=== PATIENT | female | born 1950 | race Two or more races ===

== ENCOUNTER → 2023-04-05 10:39 | Outpatient (REF) | payer OTHER, SELFPAY | LOC: HWWDC 10:39 | PROVIDERS: ATTENDING PHYSICIAN Family Medicine | DX: Z12.31 Encounter for screening mammogram for malignant neoplasm of breast (principal) | CPT/HCPCS: 77063; 77067 ==

== ENCOUNTER 2023-08-09 20:29 | Inpatient (IN) | payer OTHER, SELFPAY ==
[2023-08-09] VITALS (35 sets, daily range): BP systolic 72–157; BP diastolic 34–115; BMI 35.0; BMI 34.9
[2023-08-09 16:45] LABS: % Basophils 0.5 % (0-2); % Eosinophils 1.8 % (0-6); % Immature Granulocytes 0.2 % (0-0.5); % Lymphocytes 40.4 % (20.5-51.1); % Monocytes 8.6 % (1.7-9.3); % Neutrophils 48.5 % (42.2-75.2); Absolute Eosinophils 0.1 10^3/uL (0-0.7); Absolute Lymphocytes 2.5 10^3/uL (1.2-3.4); Absolute Monocytes 0.5 10^3/uL (0.1-0.6); Hematocrit 31.2 % (37.0-47.0); Hemoglobin 10.1 g/dL (12.0-16.0); Mean Corp Hgb Conc. 32.4 g/dL (33.0-37.0); Mean Corpuscular Hgb 28.9 pg (27.0-31.0); Mean Corpuscular Volume 89.4 fL (81.0-99.0); Mean Platelet Volume 11.2 fL (7.4-10.4); Nucleated Red Blood Cells % 0 %; Platelet Count 290 10^3/uL (130-400); Red Blood Cell Count 3.49 10^6/uL (4.20-5.40); Red Cell Dist. Width 14.7 % (11.5-14.5); White Blood Cell Count 6.1 10^3/uL (4.8-10.8)
--- NOTE | 2023-08-09 16:45 | ED.GENMED ---
History of Present Illness
General
Chief Complaint: Rectal Bleeding
Time Seen by Provider: 08/09/23 16:35
History of Present Illness
History of Present Illness:
Patient presents to the emergency department with bright red blood per rectum starting this morning. Notes that she had a little bit of stomach discomfort yesterday. Today pain is localized to the left lower quadrant. Patient notes anorexia.
Denies fevers or chills. Denies nausea or vomiting.
Past History
Past History
ED Past Medical History: GERD
ED Past Surgical History: None
Phy Exam
Physical Exam
Physical Exam:
GENERAL APPEARANCE: uncomfortable appearing holding abdomen
EYES lids/conjunctiva normal
EARS/NOSE/THROAT Mucous membranes moist, uvula midline without oral pharyngeal erythema, exudate or swelling
HEAD/NECK normocephalic atraumatic, neck is supple.
RESPIRATORY respiratory effort normal, speaks in full sentences, no accessory muscle use. Lungs clear to auscultation without rhonchi, wheezes, rales
CARDIAC Regular rate and rhythm, no edema.
ABDOMINAL soft, tender in the left lower quadrant, no peritoneal signs. Rectal exam with active bright red blood
MUSCLES/EXTREMITIES No abnormal range of motion, no swelling.
SKIN Warm, pink and dry. No rashes
NEUROLOGICAL Speech is clear and appropriate. Normal level of consciousness. 5/5 strength in all extremities.
PSYCH Normal mood and affect. Judgement/competence is appropriate
Course
Orders/Labs/Results
Orders:
Orders
08/09/23 Dinner
Clear Liquid
08/09/23 16:37
Type+Screen Urgent
Basic Metabolic Panel Urgent
Complete Blood Count/With Diff Urgent
08/09/23 16:46
CT Abd/pelvis Angio W/wo Iv Urgent
Comment:
Reason For Exam: lower GI bleed
08/09/23 16:48
0.9% Sodium Chloride 500 ml [Nss] 500 ml IV BOLUS
Morphine Sulfate 4 mg IV NOW STA
08/09/23 16:49
Ondansetron Injectable [Zofran] 4 mg IV NOW STA
08/09/23 17:07
PTT Urgent
Prothrombin Time Urgent
08/09/23 18:10
CefTRIAXone [Rocephin] 1,000 mg IV NOW STA
MetroNIDAZOLE 500 MG/100 ML [Flagyl 500 mg] 100 ml IV NOW
08/09/23 18:58
Morphine Sulfate 4 mg .ROUTE .STK-MED ONE
08/09/23 19:06
Emergent Blood Release Urgent
Blood Bank Products: *Packed RBC Leuko(PRBC's)
Quantity: 2
Reason: Bleeding
A Blood Permit is Required for all Blood.
FOR LAB PICKUP:
Take order sheet to Blood Bank to cuprous chloride helper blood products in validated cooler
Immediately return to patient care area.
Blood products released by
Blood Products picked up by
Sent to
Date and Time
Pt has had a significant HIV exposure? Routine
HIV Exposure is significant?: No
HIV Combo Urgent
Hepatitis B Surface Antibody Urgent
Hepatitis B Surface Antigen Urgent
Hepatitis C Antibody Urgent
08/09/23 19:22
CBC/No Diff [Complete Blood Count/No Diff] Q8H
08/09/23 19:30
Naloxone [Narcan] 0.4 mg IV NOW STA
08/09/23 19:31
Naloxone [Narcan] 0.4 mg .ROUTE .STK-MED ONE
08/09/23 19:40
Heparin 1000 Units/500 ml [Heparin] 3,000 units in 1,500 ml .ROUTE .STK-MED
Lidocaine 2% [Xylocaine 2% Mdv] 20 ml .ROUTE .STK-MED ONE
08/09/23 19:47
[facility] CONSULT Stat
Consulting Provider: Thomas Tejeda
Was physician already notified: Yes
Reason for Consult/Procedure: GI bleed
Acknowledgement that appropriate orders are entered: Yes
08/09/23 20:08
Admit/Transfer Patient As Directed
Co-Sign Provider:
Level of Care: Inpatient admission
Assign to:: ICU
Physician / Group: Kalpesh
Diagnosis: GI Bleed
Reason for Hospitalization: GI Bleed
Expected length of stay greater than two midnights?: Yes
ELOS- Estimated Length of Stay in days: 4
I certify the patient meets the requirements for IP care: Yes
08/09/23 20:10
Code Status As Directed
Resuscitation Status: Full Code
Abnormal Lab Results
08/09/23 08/09/23
16:37 19:22
WBC 12.2 H 10^3/uL
(4.8-10.8)
RBC 3.49 L 10^6/uL 2.40 L 10^6/uL
(4.20-5.40) (4.20-5.40)
Hgb 10.1 L g/dL 7.1 L D g/dL
(12.0-16.0) (12.0-16.0)
Hct 31.2 L % 21.8 L %
(37.0-47.0) (37.0-47.0)
MCHC 32.4 L g/dL 32.6 L g/dL
(33.0-37.0) (33.0-37.0)
RDW 14.7 H % 14.6 H %
(11.5-14.5) (11.5-14.5)
MPV 11.2 H fL 11.2 H fL
(7.4-10.4) (7.4-10.4)
Glucose 258 H mg/dl
(70-99)
Crossmatch IS Only See Detail
08/09/23 19:22
08/09/23 16:37
Vital Signs
Initial and Last Documented VS:
Initial Vital Signs
Temp Resp
98.7 F 20
08/09/23 16:30 08/09/23 16:30
Last Documented Vital Signs
Temp Pulse Resp BP Pulse Ox
97.8 F 74 12 111/75 100
08/09/23 19:45 08/09/23 19:45 08/09/23 19:45 08/09/23 19:45 08/09/23 19:35
*Critical Care Note
Total Time (30-74mins, 75-104mins- exclusive of procedures): 35
comment:
updating family, at bedside providing direct critical care
ED Attending Note
ED Attending Note
ED Attending Note:
Patient with acute active diverticular bleed. Hemodynamically stable. Having ongoing bleeding episodes in the emergency department. Hemoglobin is 10 from baseline of around 11. Consulted both GI on-call Dr. Lozano as well as IR on-call .
Ileana.
Given clinical stability at this time, plan is to manage conservatively with IR to intervene with any clinical changes
Shortly after admission order placed, patient began to decompensate with worsening in her mental status. Repeat hemoglobin dropped to 7.1. Patient hypotensive 70s/30s. Given 20mcg push dose epi, emergent blood ordered and bolused. BP improving.
Given dose of narcan for worsening mental status -- multifactorial in the setting of hemorrhagic shock and opioid. Reconsulted interventional radiology who is coming to the hospital to intervene. Patient tired but easily arousable, answering
questions, at time of leaving ER to go to IR. Considered intubation for definitive airway, however risk of circulatory arrest felt to outweigh benefit given she is protecting airway at this time.
-
Portions of this chart may have been created with voice recognition software.� Occasional wrong word or��sound alike� substitutions may have occurred due to the inherent limitations of voice recognition software.
Discharge Plan
Departure
Patient Disposition: Admit
Date of Disposition: 08/09/23
Time of Disposition: 19:02
Admit to: ICU
Admit to doctor: ICU
Presentation/result/management discussed w/ accepting MD/DO: Hospitalist
Discharge Problem:
Diverticular hemorrhage, Colitis
Prescriptions:
No Action
metformin 500 mg Tablet
500 mg PO BIDWMEAL
atorvastatin 20 mg Tablet
20 mg PO DAILY
atenolol 100 mg Tablet
100 mg PO DAILY
Theragen Tablet
1 tab PO DAILY
aspirin 81 mg Tablet,Delayed Release (Dr/Ec)
81 mg PO HS
amlodipine 10 mg Tablet
10 mg PO DAILY
gemfibrozil 600 mg Tablet
600 mg PO BID
glipizide 2.5 mg Tablet Extended Release 24hr
2.5 mg PO NOON
Premarin 0.625 mg/gram Cream
0.625 mg VAGINAL DAILYPRN PRN (Reason: mild pain)
esomeprazole magnesium 40 mg Capsule,Delayed Release(Dr/Ec)
40 mg PO DAILY
albuterol sulfate 90 mcg/actuation Hfa Aerosol Inhaler
1 puff INHALATION R DAILYPRN PRN (Reason: SOB)
fluticasone propionate 50 mcg/actuation [place],Suspension
2 spray INTRANASAL DAILY
atenolol 50 mg Tablet
50 mg PO HS
carboxymethylcellulose sodium [Refresh] 1 % Drops, Liquid Gel
1 drp BOTH EYES HS
cyclosporine [Restasis] 0.05 % Dropperette
1 drp BOTH EYES NOON
Referrals:
Hair Hernandez MD [Family Provider] -
Interventions
Interventions:
*Risk Screen - Suicide Last Done: 08/09/23 16:30
*General Assessment Last Done: 08/09/23 16:30
*Neglect/Abuse Screening Last Done: 08/09/23 16:30
ED- Fall Risk Assessment Last Done: 08/09/23 16:41
EH-Fyehdk-Yufulyuewh Assessment Last Done: 08/09/23 16:41
ED- Cardiac Assessment Last Done: 08/09/23 16:41
ED- Pulmonary Assessment Last Done: 08/09/23 16:41
Discharge Date and Time
Print Language: POLISH
[2023-08-09] MEDS: MORPHINE SULFATE 4 MG IV (16:59)
[2023-08-09] MEDS: NSS 500 IV (17:00)
[2023-08-09] MEDS: ZOFRAN 4 MG IV (17:00)
[2023-08-09 17:10] LABS: Blood Urea Nitrogen 17 mg/dl (7-17); Carbon Dioxide 23 mmol/L (22-30); Chloride 107 mmol/L (98-107); Estimated Creatinine Clearance 70 ml/min; Glucose 258 mg/dl (70-99); Sodium 137 mmol/L (135-145); eGFR > 60.00
[2023-08-09 17:41] LABS: INR 1.05; PT 13.5 Sec (11.4-14.6)
[2023-08-09 17:42] LABS: APTT 30.8 Sec (23.4-35.0)
[2023-08-09] MEDS: FLAGYL 500 MG 100 IV (18:20)
[2023-08-09] MEDS: ROCEPHIN 1000 MG IV (18:21)
--- NOTE | 2023-08-09 18:49 | CON.GI ---
Addendum entered and electronically signed by Perry Lozano MD 08/09/23 18:57:
Correction, tortuous not atherosclerotic aorta
Original Note:
Consultation
-
Date/Time Consultation Performed: 08/09/23
Performing Provider: Marcelino Lozano MD
Reason for Consultation: acute blood loss anemia
Medical History
Chief Complaint / HPI
Chief Complaint: rectal leeding
History of Present Illness:
The patient is a 73-year-old female past medical history as noted presents with acute GI bleeding. She was in her usual health until this morning when she had 1 small mount of bright red blood, though then later had urgency, crampy abdominal pain
followed by large amount of bright red blood and clot. She denies any lightheadedness or dizziness, and her discomfort is improving overall. She never had bleeding like this before. She does have history of diverticulitis last year that responded
quickly to antibiotics. She never had a colonoscopy was had 2 negative Cologuard test. Currently she denies any chest pain, shortness of breath, lightheadedness or dizziness.
Past Medical History
Past Medical History: Asthma, CAD, HTN and NIDDM
Past Surgical History: None
Social History
Tobacco: Non-Smoker
Alcohol: None
Family History
Family History: Reviewed & Not Pertinent
Allergies / Home Medications
Allergy/AdvReac Type Severity Reaction Status Date / Time
No Known Allergies Allergy Verified 10/30/22 20:50
�Medication �Instructions �Recorded
albuterol sulfate 90 mcg/actuation 1 puff inhalation R DAILYPRN PRN 08/09/23
aerosol inhaler SOB
amlodipine 10 mg tablet 10 mg PO DAILY 08/09/23
aspirin 81 mg tablet,delayed 81 mg PO HS 08/09/23
release
atenolol 100 mg tablet 100 mg PO DAILY 08/09/23
atenolol 50 mg tablet 50 mg PO HS 08/09/23
atorvastatin 20 mg tablet 20 mg PO DAILY 08/09/23
carboxymethylcellulose sodium 1 % 1 drp BOTH EYES HS 08/09/23
eye liquid gel drops
conjugated estrogens 0.625 mg/gram 0.625 mg vaginal DAILYPRN PRN mild 08/09/23
vaginal cream (Premarin) pain
cyclosporine 0.05 % eye drops in a 1 drp BOTH EYES NOON 08/09/23
dropperette (Restasis)
esomeprazole magnesium 40 mg 40 mg PO DAILY 08/09/23
capsule,delayed release
fluticasone propionate 50 2 spray intranasal DAILY 08/09/23
mcg/actuation nasal
spray,suspension
gemfibrozil 600 mg tablet 600 mg PO BID 08/09/23
glipizide 2.5 mg tablet, extended 2.5 mg PO NOON 08/09/23
release 24 hr
metformin 500 mg tablet 500 mg PO BIDWMEAL 08/09/23
therapeutic multivitamin 1 tab PO DAILY 08/09/23
Review of Systems
-
All other systems: A 12 pt ROS was Negative except as stated above in HPI
Vital Signs
Temp Pulse Resp BP Pulse Ox
97.8 F 60 15 136/79 100
08/09/23 16:35 08/09/23 17:15 08/09/23 17:15 08/09/23 17:00 08/09/23 17:00
Physical Exam
Exam
General: NAD
HEENT: MMM, anicteric, no lymphadenopathy
Heart: Regular, no murmurs
Lungs: CTA bilaterally
Abdomen: normal bowel sounds, soft, minimal lower abdominal tenderness, no rebound or guarding, no masses, bruits or ascites
Extremeties: no edema
Skin: no rashes
Results
WBC 6.1 10^3/uL (4.8-10.8) 08/09/23 16:37
Hgb 10.1 g/dL (12.0-16.0) L 08/09/23 16:37
Hct 31.2 % (37.0-47.0) L 08/09/23 16:37
MCV 89.4 fL (81.0-99.0) 08/09/23 16:37
Plt Count 290 10^3/uL (130-400) 08/09/23 16:37
Absolute Neuts (auto) 3.0 10^3/uL (1.4-6.5) 08/09/23 16:37
PT 13.5 Sec (11.4-14.6) 08/09/23 17:07
INR 1.05 08/09/23 17:07
APTT 30.8 Sec (23.4-35.0) 08/09/23 17:07
Sodium 137 mmol/L (135-145) 08/09/23 16:37
Potassium mmol/L (3.5-5.1) 08/09/23 16:37
Chloride 107 mmol/L (98-107) 08/09/23 16:37
Carbon Dioxide 23 mmol/L (22-30) 08/09/23 16:37
BUN 17 mg/dl (7-17) 08/09/23 16:37
Creatinine 0.7 mg/dL (0.6-1.0) 08/09/23 16:37
Calcium 10.0 mg/dl (8.4-10.2) 08/09/23 16:37
Total Bilirubin Cancelled 08/09/23 16:37
AST Cancelled 08/09/23 16:37
ALT Cancelled 08/09/23 16:37
Alkaline Phosphatase Cancelled 08/09/23 16:37
Diagnostic Image Results:
CTA:
IMPRESSION:
1. ACUTE ACTIVE DIVERTICULAR HEMORRHAGE in the PROXIMAL ASCENDING COLON.
2. Severe diverticulosis in the descending colon.
3. Mild colitis throughout the descending colon and rectum.
4. Mild hepatic cirrhosis.
5. Moderate cardiomegaly.
Prior GI Procedures:
EGD:
Colonoscopy:
Assessment / Plan
-
1. Acute GI blood loss: Consistent with diverticular bleed, with positive CT angiogram, though is hemodynamically stable. IR was notified, though given her hemodynamic stability and atherosclerotic aorta deferred angiogram. She has no colitis
symptoms, and again clinically is consistent with diverticular bleed. Other etiologies including malignancy or angiectasia are not excluded though seem much less likely. At this point would continue close observation, clear liquid diet, trend
hemoglobin supportive care. If any signs of brisk active bleeding then would again notify IR for angiogram given known location in the ascending colon. If resolved spontaneously then may consider outpatient colonoscopy diagnostically in the future.
2. Abnormal CT scan: With question of cirrhosis, though has normal platelets, INR, previously normal LFTs, no other stigmata of cirrhosis.
-
-
Thank you for consultation and allowing me to participate in the patient's care. Please call the continuous wave operator GI physician during the after hours with any questions or concerns.
[2023-08-09 19:28] LABS: Hematocrit 21.8 % (37.0-47.0); Hemoglobin 7.1 g/dL (12.0-16.0); Mean Corp Hgb Conc. 32.6 g/dL (33.0-37.0); Mean Corpuscular Hgb 29.6 pg (27.0-31.0); Mean Corpuscular Volume 90.8 fL (81.0-99.0); Mean Platelet Volume 11.2 fL (7.4-10.4); Platelet Count 222 10^3/uL (130-400); Red Cell Dist. Width 14.6 % (11.5-14.5); White Blood Cell Count 12.2 10^3/uL (4.8-10.8)
[2023-08-09] MEDS: NARCAN 0.4 MG IV (19:33)
--- NOTE | 2023-08-09 20:12 | HPS.HSE ---
Family Physician
-
Family Physician: Hair Hernandez
Chief Complaint
-
Bloody stools
History of Present Illness
Patient is a 73y F with PMH significant for hypertension and DM-II who presents to ED complaining of bloody stools today. History obtained from family primarily given acuity and language barrier. Patient was in her usual state of health until
she had a BM around noon with bright red blood. She apparently has had small amounts of bleeding in the past which has been attributed to hemorrhoids; however, this was significantly greater amount than usual. Patient had a second, larger episode
of gross blood and clots around 3 PM and her / [id number] brought her to the ED for further evaluation.
In the ED, patient was initially hemodynamically stable with hemoglobin near her known baseline.
Unfortunately, she became abruptly hypotensive and repeat Hgb was 3 g decreased from initial presentation.
CTA was done showing active source of bleeding in the ascending colon.
IR was contacted for emergent angiography and possible embolization.
Medical History
Past Medical History
Past Medical History: Reports Other
Additional Past Medical History:
Hypertension
DM-I
COPD / Asthma
Obesity
GERD
Past Surgical History: Reports Other
Additional Past Surgical History:
Hernia Repair
Social History
Tobacco: Non-smoker
Alcohol: None
Drug: None
Family History
Family History: Not pertinent
Allergies / Home Medications
Allergies reflects when Allergies were last updated in [employer].
Home Medications with original date entered in [employer]
Allergy/Medication List:
Allergies
Allergy/AdvReac Type Severity Reaction Status Date / Time
No Known Allergies Allergy Verified 10/30/22 20:50
Home Medications
albuterol sulfate 90 mcg/actuation aerosol inhaler 1 puff inhalation R DAILYPRN PRN SOB 08/09/23
amlodipine 10 mg tablet 10 mg PO DAILY 08/09/23
aspirin 81 mg tablet,delayed release 81 mg PO HS 08/09/23
atenolol 100 mg tablet 100 mg PO DAILY 08/09/23
atenolol 50 mg tablet 50 mg PO HS 08/09/23
atorvastatin 20 mg tablet 20 mg PO DAILY 08/09/23
carboxymethylcellulose sodium 1 % eye liquid gel drops 1 drp BOTH EYES HS 08/09/23
conjugated estrogens 0.625 mg/gram vaginal cream (Premarin) 0.625 mg vaginal DAILYPRN PRN mild pain 08/09/23
cyclosporine 0.05 % eye drops in a dropperette (Restasis) 1 drp BOTH EYES NOON 08/09/23
esomeprazole magnesium 40 mg capsule,delayed release 40 mg PO DAILY 08/09/23
fluticasone propionate 50 mcg/actuation nasal spray,suspension 2 spray intranasal DAILY 08/09/23
gemfibrozil 600 mg tablet 600 mg PO BID 08/09/23
glipizide 2.5 mg tablet, extended release 24 hr 2.5 mg PO NOON 08/09/23
metformin 500 mg tablet 500 mg PO BIDWMEAL 08/09/23
therapeutic multivitamin 1 tab PO DAILY 08/09/23
Review of Systems
-
History Source: Patient and Family
A 12 point ROS was completed and negative except as noted: Yes
Constitutional: Denies Fever or Chills
Respiratory: Denies Cough or Trouble Breathing
Cardiac: Denies Chest Pain or Palpitations
Abdomen/GI: Reports Abdominal Pain, Diarrhea and Bloody Stools; Denies Nausea, Vomiting or Black Stools
: Denies Dysuria or Frequency
Musculoskeletal: Denies Edema
Neurological: Denies Dizzy or Headache
Psych: Denies Depression or Anxiety
Physical Exam
Vital Signs
Vital Signs
Temp Pulse Resp BP Pulse Ox
97.8 F 74 12 111/75 100
08/09/23 19:45 08/09/23 19:45 08/09/23 19:45 08/09/23 19:45 08/09/23 19:35
Physical Exam
General: Other (73y F in moderate distress due to chills / cold.)
HEENT: Moist mucous membranes, PERRLA and Other (Thick neck.)
Respiratory: Other (Decreased at bases. Scattered squeaks / wheezes.)
Cardiac: S1/S2 and Tachycardia; No Murmur
GI: Other (Abdomen is distended. Mild lower abdominal tenderness without rebound / guarding. Pos BS.)
Musculoskeletal: No Clubbing, No Cyanosis and No Edema
Neuro: Awake and Alert
Laboratory Results
-
08/09/23 19:22
08/09/23 16:37
Laboratory Results
PT 13.5 Sec (11.4-14.6) 08/09/23 17:07
INR 1.05 08/09/23 17:07
APTT 30.8 Sec (23.4-35.0) 08/09/23 17:07
Total Bilirubin Cancelled 08/09/23 16:37
AST Cancelled 08/09/23 16:37
ALT Cancelled 08/09/23 16:37
Alkaline Phosphatase Cancelled 08/09/23 16:37
Impression/Plan
-
A/P: Patient is a 73y F with PMH significant for hypertension and DM who presents to ED complaining of bloody stools since today.
Acute Lower GI Bleeding
Acute Blood Loss Anemia secondary to the above
Hypotension secondary to the above
- Patient is being transported to IR for emergent angiography +/- embolization given ongoing / active bleeding.
- Receiving 2 units PRBCs now in the ED.
- Admit to ICU post-procedure.
- NPO. IVF support.
- Follow H&H and provide additional blood products as needed to maintain Hgb > 7.
- GI and IR evaluations appreciated.
- IV PPI daily for now.
- Hold / discontinue ASA. Patient has no history of ASCVD, no prior VA / CVA and no intravascular stents per family.
- Follow for clinical improvement / hemodynamic stability.
Benign Hypertension
- Presently hypotensive due to blood loss / hypovolemia.
- Hold all antihypertensive medications acutely.
- Follow for improvement and resume medications when appropriate.
DM-II
- Stable. Hold oral medications acutely.
- Follow glucose and cover with SSI as needed.
- Update A1C.
Restrictive Lung Disease
- Patient with ill-defined chronic respiratory issues.
- Apparently ruled out for COPD / asthma / etc.
- Dyspnea attributed to posture / habitus.
- Follow for any worsening dyspnea, etc.
- Albuterol PRN.
DVT Prophylaxis: SCDs
Code Status: Full
--- NOTE | 2023-08-09 21:25 | EDRN ---
At 1900, this RN entered the room to change patient's 4th bright red bloody BM and administer ordered antibiotics. Pt was complanining of LLQ abd pain. Pt HR 58, BP 90/66 (74), pulse ox 96%, RR 18. Dr. Regalado notified of pt discomfort coming back,
verbal order placed for 4 mg of morphine. 4 mg of morphine administered at 190, pt complaining of dizziness, pale, abd pain and lower abd distended. Dr. Regalado called to bedside to reassess pt. Pt BP 72/34 (43), HR 56, RR 11, pulse ox 93%.
MD Fabricio ordered 2 Units of emergency unmatched blood, additional IV access gained to start 2 1L NSS bolus.
Pt recieved 10 mcg of epi by Dr. Regalado at 1914.
Pt placed on 2L of oxygen due to pulse ox 88-89%.
Pt given 2U of cross matched blood from blood bank, consent signed by pt son.
Additional CBC sent to lab with a result of 7.1 compared to previous 10.1.
Spoke with Belinda from IR AT 2008 to give verbal report. 16Fr Temperature brock placed per IR request, pt stomach was hard and distended.
Pt transported to IR by this RN and an additional RN at 2009.
--- NOTE | 2023-08-09 21:28 | W.PN.UPDATE ---
Update Note
Progress Note Update
Procedure: mesenteric angiogram
- TESSA/SMA arteriograms performed. Image quality degraded by patient body habitus, however no suspicious findings. No angiographic evidence for active bleeding
- Vitals stable throughout and no further bloody bowel movements while in IR
- Rec continued conservative management. Can be reconsulted as necessary.
[2023-08-09] MEDS: NSS 1000 IV (22:12)
[2023-08-09 22:31] LABS: Hematocrit 30.5 % (37.0-47.0); Hemoglobin 10.1 g/dL (12.0-16.0)
--- NOTE | 2023-08-09 23:17 | PTCARENOTE ---
Addendum entered by Julisa Desai RN 08/10/23 06:30:
99% on 2 liters nasal cannula, not room air.
Original Note:
Received patient from Vera LUNDBERG, drowsy, family at bedside who helped to translate. Patient reports pain is much better, 2/. Heart rate 50s-60s, BP stable, 110s/80s. SCDs on, weak palpable radial pulses. 99% on room air, lung sounds coarse
anteriorly and diminished posteriorly. Abdomen round, distended, firm, and tender to palpation. 16 fr temp sensing brock in place, putting out clear yellow urine. Right femoral site from angiography CDI. 4 PIVs WNL, patent. NSS gtt ongoing per
order. Call rushing within reach, family staying at bedside overnight.
[2023-08-10] VITALS (28 sets, daily range): BP systolic 89–132; BP diastolic 43–94
[2023-08-10 00:05] LABS: Glucose - Point of Care 153 mg/dl (70-99)
--- NOTE | 2023-08-10 00:32 | PTCARENOTE ---
Patient assessment unchanged from previous, sleeping comfortably. Son at bedside. Site checks ongoing per order.
[2023-08-10 03:49] LABS: Hematocrit 28.3 % (37.0-47.0); Hemoglobin 9.3 g/dL (12.0-16.0)
--- NOTE | 2023-08-10 04:00 | PTCARENOTE ---
Patient assessment unchanged from previous, sleeping comfortably, labs sent.
[2023-08-10 04:29] LABS: Blood Urea Nitrogen 16 mg/dl (7-17); Calcium 7.9 mg/dl (8.4-10.2); Carbon Dioxide 19 mmol/L (22-30); Chloride 114 mmol/L (98-107); Estimated Creatinine Clearance 82 ml/min; Glucose 105 mg/dl (70-99); Potassium 4.6 mmol/L (3.5-5.1); Sodium 139 mmol/L (135-145); eGFR > 60.00
--- NOTE | 2023-08-10 06:01 | W.PN.GI.CBS2 ---
Today's Communication / Plan
-
Please see assessment and plan for details.
Assessment / Plan
-
1. Acute GI blood loss: Consistent with diverticular bleed, with positive CT angiogram, with recurrent bleeding, status post angiogram and IR which was negative, but has remained stable overnight. Hemoglobin is appropriate for 2 units of PRBCs,
hemodynamics have remained stable. At this point we will start clear liquid diet and continue close observation. If signs of brisk rebleeding then would repeat angiogram in IR. If remains stable likely able to advance diet and possibly discharge
tomorrow, to plan outpatient diagnostic colonoscopy in the next several weeks.
2. Abnormal CT scan: With question of cirrhosis, though has normal platelets, INR, previously normal LFTs, no other stigmata of cirrhosis.
Subjective
Subjective
Date of Service: August 10, 2023
Events noted, patient went to IR after recurrent bleeding, angiogram negative. Since then has been stable with no further bowel movements overnight, hemodynamically stable. She denies any abdominal pain today.
Objective
Data Reviewed
Laboratory Data:
Laboratory Results
08/10/23 03:41
Laboratory Results
PT 13.5 Sec (11.4-14.6) 08/09/23 17:07
INR 1.05 08/09/23 17:07
APTT 30.8 Sec (23.4-35.0) 08/09/23 17:07
Total Bilirubin Cancelled 08/09/23 16:37
AST Cancelled 08/09/23 16:37
ALT Cancelled 08/09/23 16:37
Alkaline Phosphatase Cancelled 08/09/23 16:37
Vital Signs and I&O:
Vital Signs
Temp Pulse Resp BP Pulse Ox
97.2 F 58 11 114/67 99
08/10/23 03:59 08/10/23 03:30 08/10/23 03:00 08/10/23 03:00 08/10/23 03:30
I&O
08/08/23 08/09/23 08/10/23
06:59 06:59 06:59
Intake Total 1049 / 1049
Output Total 2119
Balance -1070 / -1070
Physical Exam
Physical Exam
General: NAD
Abdomen: normal bowel sounds, soft, mild fullness in the right lower quadrant, no tenderness, no masses or bruits, no ascites
[2023-08-10 06:16] LABS: Glucose - Point of Care 94 mg/dl (70-99)
--- NOTE | 2023-08-10 07:14 | CON.INTV ---
Consultation
Consultation Request
Date/Time Consultation Requested: 08/09
Date/Time Consultation Performed: 08/09
Reason for Consultation: critical care
Medical History
-
History of Present Illness:
History obtained from the patient, [id number] at bedside, reviewing medical records and outpatient records. 73-year-old female with history of hypertension, diabetes, suspected sleep apnea who presents with few days of mild blood streaks in
the stool. According to the clfcgybg-[id number]-fhd, had some mild bright red blood. Patient does have issues with chronic constipation. She then developed a episode of bright red blood at around noon. This was followed by a second episode later in the
day. For this reason she was brought into [facility]. Upon arrival, afebrile, pulse 74, breathing at 12, blood pressure 111/75, 100% saturation. Imaging and workup revealed diverticular bleed. GI was consulted. Patient was given IV
fluids, blood for blood pressure in the 70s. Hemoglobin went down to 7.1. Patient also had worsening mental status per ED records and was given Narcan. Patient underwent mesenteric angiogram which did not reveal any active bleeding. Patient was
admitted to ICU for further management
Presently, she appears comfortable. She denies shortness of breath, chest pain. She feels like she needs to have a bowel movement. Denies significant abdominal pain. Denies nausea. Yvfimgia-ia-hzz acted as an triage clinician
Prior to the last few days, she was in her usual state of health, no falls or trauma. No change in weight or appetite.
.
PMH: Hypertension, hyperlipidemia, diabetes, GERD, history of asthma?
Past Medical History
Past Medical History: None (See above)
Past Surgical History: None (See above)
Social History
Tobacco: Non-smoker
Alcohol: None
Drug: None
Living: With Family (Lives with family, lived in [place] [place] for 15 years, from [facility])
Employment: Not Employed
Family History
Family History: Reviewed & Not Pertinent
Allergies / Home Medications
Allergies
Allergy/AdvReac Type Severity Reaction Status Date / Time
No Known Allergies Allergy Verified 10/30/22 20:50
Home Medications
�Medication �Instructions �Recorded �Confirmed �Last Taken �Type
albuterol sulfate 90 mcg/actuation 1 puff inhalation R DAILYPRN PRN 08/09/23 08/09/23 08/09/23 History
aerosol inhaler SOB
amlodipine 10 mg tablet 10 mg PO DAILY 08/09/23 08/09/23 08/09/23 History
aspirin 81 mg tablet,delayed 81 mg PO HS 08/09/23 08/09/23 08/08/23 History
release
atenolol 100 mg tablet 100 mg PO DAILY 08/09/23 08/09/23 08/09/23 History
atenolol 50 mg tablet 50 mg PO HS 08/09/23 08/09/23 08/08/23 History
atorvastatin 20 mg tablet 20 mg PO DAILY 08/09/23 08/09/23 08/09/23 History
carboxymethylcellulose sodium 1 % 1 drp BOTH EYES HS 08/09/23 08/09/23 08/08/23 History
eye liquid gel drops
conjugated estrogens 0.625 mg/gram 0.625 mg vaginal DAILYPRN PRN mild 08/09/23 08/09/23 Unknown History
vaginal cream (Premarin) pain
cyclosporine 0.05 % eye drops in a 1 drp BOTH EYES NOON 08/09/23 08/09/23 08/08/23 History
dropperette (Restasis)
esomeprazole magnesium 40 mg 40 mg PO DAILY 08/09/23 08/09/23 08/09/23 History
capsule,delayed release
fluticasone propionate 50 2 spray intranasal DAILY 08/09/23 08/09/23 08/09/23 History
mcg/actuation nasal
spray,suspension
gemfibrozil 600 mg tablet 600 mg PO BID 08/09/23 08/09/23 08/09/23 History
glipizide 2.5 mg tablet, extended 2.5 mg PO NOON 08/09/23 08/09/23 08/08/23 History
release 24 hr
metformin 500 mg tablet 500 mg PO BIDWMEAL 08/09/23 08/09/23 08/09/23 History
therapeutic multivitamin 1 tab PO DAILY 08/09/23 08/09/23 08/09/23 History
Review of Systems
Vitals / Labs / Diagnostic Testing
Vital Signs
Temp Pulse Resp BP Pulse Ox
97.2 F 63 11 124/70 98
08/10/23 03:59 08/10/23 06:00 08/10/23 06:00 08/10/23 06:00 08/10/23 06:00
Lab Data
08/10/23 03:41
Laboratory Results
08/09/23
17:07
PT 13.5
INR 1.05
APTT 30.8
Diagnostic Testing:
Physical Exam
-
HEENT: Normocephalic, Anicteric and Other (Large neck)
Cardiovascular: S1/S2, Regular Rhythm, Murmur (n) and Rub (n)
Respiratory: Wheeze (n), Rales (n), Rhonchi (n), Non-Labored Respirations and Other (Decreased breath sounds)
GI: Soft, Non Distended (Obese) and Tender (Minimal left lower quadrant, no rebound or guarding)
Neurology: Awake, Alert and No Motor Deficits (Moves all extremities, generally weak)
Skin: Good Color and Other (Sequentials in place)
General: Comfortable
Assessment
-
73-year-old female with history of diabetes, hypertension, suspected sleep apnea presents with bright red blood per rectum. Workup revealed diverticular bleed. Patient became hypotensive, improved with fluids and blood transfusion. Mesenteric
angiogram did not reveal active bleeding. Patient admitted to ICU 08/09/2023
Acute GI bleed
Diverticular bleed per imaging
History of diverticulitis
Acute anemia, required transfusion
Hypotension, secondary to bleeding
Leukocytosis
Hyperglycemia
Nodular cirrhosis per abdominal imaging
Conditions present prior to admission
Left lower lobe nodule 1 cm
Stable since October 2022
Anemia of chronic disease
Chronic gastritis per endoscopy 2018
History of varicose veins
History of asthma per outpatient records
Restrictive lung disease per outpatient records
Plan/recommendations
At this time, patient is critically ill but stabilized. Blood pressure improved following transfusion of 2 units. Hemoglobin 9.3. No further bloody bowel movements although patient feels like she needs to have a bowel movement
Mesenteric angiogram per IR with no active bleeding
Coagulation studies normal
Nodular cirrhosis noted per abdominal imaging
Moving forward
Continue to monitor serial H&H
Patient seen by GI. Diet to be advanced. If rebleeding occurs, repeat angiogram with IR. Patient will require outpatient diagnostic colonoscopy per GI
With regards to nodular cirrhosis, GI will follow conservatively. No stigmata of cirrhosis
Follow blood sugars
With regards to nodule, CT chest was recommended after abdominal CT October 2022
Per outpatient records, CT chest February 2023 was recommended but was never obtained
Patient with chronic respiratory issues per reviewing outpatient records on albuterol alone and restrictive lung disease
Strongly suspected sleep apnea
Reviewed at length risks and ramifications of untreated sleep apnea with family.
May consider outpatient workup, pulmonary follow-up at discretion of patient, primary physician
Reviewed with critical care nursing, evvupghx-pa-nea at bedside
We will follow
TCCT 31 min
[2023-08-10] MEDS: NOVOLOG FLEXPEN-LOW RESISTANCE SC ×3 (07:27→16:20)
[2023-08-10 07:32] LABS: Glucose - Point of Care 80 mg/dl (70-99)
[2023-08-10] MEDS: NSS 1000 IV (07:44)
[2023-08-10] MEDS: PROTONIX IV 40 MG IV (07:44)
[2023-08-10] MEDS: NSS (PRESERVATIVE FREE) 10 ML IV (07:45)
--- NOTE | 2023-08-10 08:10 | PTCARENOTE ---
Assumed care of pt at 0715 following shift report. Pt awake and resting quietly in bed, family present in room assisting w/ translation (pt primary Tamil speaking). Pt reports continued LLQ pain/tenderness. Denies any other complaints. Abdomen
round, distended w/ hyperactive bowel sounds. Order for diet change to Clear liquids noted. Physical assessment completed. Comfort care provided. Call rushing w/in pt reach and safe environment maintained.
--- NOTE | 2023-08-10 09:40 | PTCARENOTE ---
Pt passed BM x2 per rectum. First BM, small dark slightly maroon tinged; second BM, moderate to large and maroon colored. Hygiene provided and ordered H/H drawn and sent to lab.
[2023-08-10 09:56] LABS: Hematocrit 26.9 % (37.0-47.0); Hemoglobin 8.8 g/dL (12.0-16.0)
--- NOTE | 2023-08-10 10:00 | W.PN.GENERIC ---
Assessment / Plan
-
73 yo female admitted after several episode of BRBPR. Her hgb dropped 3g. She had a diverticular bleed on CTA. She was brought to the IR suite. Her arteriogram was negative for active extravasation
Pt is stable with no further episodes of bleeding
Recommend colonoscopy
Consult IR if concerns for further bleeding
Acute anemia
Pt had blood transfusion
Continue to trend H&H
I spent approximately 40 minutes in counseling and coordination of care with the patient and her daughter in law, reviewing previous medical records, her recent history, physical examination, laboratory results, CTA and IR angiogram images as well
as discussing the results of the IR study.
Physician Progress Note
Subjective
This is a 73 yo female with PMHx significant for diverticulitis, HTN and DM II who has had a 3 day history of some rectal bleeding that suddenly became worse yesterday. She had 2 large BMs with BRBPR that concerned her and her family enough to
bring her to the ER. During her stay she became unstable. Her hgb dropped 3 g and she had a positive CTA for bleed in the proximal ascending colon. She underwent IR angiogram but this did not show any active extravasation. She is still having
some LLQ abdominal discomfort but is otherwise feeling much better. She has had no further bloody BMs. History is obtained by the patient and her [id number]-[id number] whom is at the bedside.
Past Medical History
PMHX/SHX: Diverticulitis, Hypertension, DM-II, COPD / Asthma, GERD, hernia repair
Social History
Tobacco: Non-smoker
Alcohol: None
Home Medications reconciliation entered in [place]
Allergies
Allergy/AdvReac Type Severity Reaction Status Date / Time
No Known Allergies Allergy Verified 10/30/22 20:50
Home Medications
albuterol sulfate 90 mcg/actuation aerosol inhaler 1 puff inhalation R DAILY PRN PRN SOB, amlodipine 10 mg tablet 10 mg PO DAILY, aspirin 81 mg tablet, atenolol 100 mg tablet 100 mg PO DAILY, atenolol 50 mg tablet 50 mg PO HS, atorvastatin 20 mg
tablet 20 mg PO DAILY, carboxymethylcellulose sodium 1 % eye liquid gel drops 1 drp BOTH EYES HS, conjugated estrogens 0.625 mg/gram vaginal cream (Premarin) 0.625 mg vaginal DAILY PRN, cyclosporine 0.05 % eye drops in a dropperette (Restasis) 1
drp BOTH EYES NOON, esomeprazole magnesium 40 mg capsule DAILY, fluticasone propionate 50 mcg/actuation nasal spray,suspension 2 spray intranasal DAILY, gemfibrozil 600 mg PO BID, glipizide 2.5 mg tablet, extended release 24 hr 2.5 mg, metformin
500 mg PO BID WMEAL, therapeutic multivitamin 1 tab PO DAILY
Objective
Vital Signs
Temp Pulse Resp BP Pulse Ox
97.6 F 65 13 113/65 99
08/10/23 07:00 08/10/23 09:00 08/10/23 09:00 08/10/23 09:00 08/10/23 09:00
Lab Results
08/10/23 03:41
PE: This is a WN/WD 73 yo female in NAD lying in the bed. Color is good. Skin is warm and dry. No scleral icterus. Conjunctiva pink. Neck supple. Heart regular without MRG. Lungs are CTA. Abdomen is soft with LLQ tenderness to palapation. No
rebound or guarding. There are active BS. No LE edema. Palpable pedal pulses. No groin tenderness or hematoma.
Images: CTA 08/09/23: Acute diverticular bleed in the proximal ascending colon. IR angiogram showed no evidence of active extravasation. I personally interpreted and reviewed all images
Labs: HGB: (08/08) 10.1->7.1->10.1 (08/09)->9.3->8.8
[2023-08-10 11:09] LABS: Glycohemoglobin (HgbA1c) 6.6 % (4.0-5.6)
[2023-08-10 11:47] LABS: Glucose - Point of Care 110 mg/dl (70-99)
--- NOTE | 2023-08-10 11:53 | W.PN.HOSP.TC ---
Today's Communication/Plan
-
Monitor vital signs and see plan
Continue to monitor hemoglobin
Monitor for further bleeding
Monitor in ICU
Clears
Kfonpzhy-rt-sag updated at bedside
Assessment / Plan
Assessment / Plan
General: No acute distress
HEENT: Moist mucous membranes, PERRLA and Other (Thick neck.)
Respiratory: Other (Decreased at bases)
Cardiac: S1/S2 and Tachycardia; No Murmur
GI: Other (Abdomen is distended. Mild lower abdominal tenderness without rebound / guarding. Pos BS.)
Musculoskeletal: No Clubbing, No Cyanosis and No Edema
Neuro: Awake and Alert
Acute Lower GI Bleeding
Acute Blood Loss Anemia secondary to the above
Hypotension secondary to the above
CT angiogram positive for diverticular bleed, status post IR, which was negative. If bleeds again then will need to go to IR again
- Patient is being transported to IR for emergent angiography +/- embolization given ongoing / active bleeding.
- Receiving 2 units PRBCs now in the ED. continue monitor hemoglobin
Continue to monitor in ICU, spoke with locomotive electrician
clears
Hemoglobin currently 8.8
- Follow H&H and provide additional blood products as needed to maintain Hgb > 7.
- IV PPI daily for now.
- Hold / discontinue ASA. Patient has no history of ASCVD, no prior DC / CVA and no intravascular stents per family.
Patient will need colonoscopy eventually
Benign Hypertension
- Presently hypotensive due to blood loss / hypovolemia.
- Hold all antihypertensive medications acutely.
- Follow for improvement and resume medications when appropriate.
DM-II
- Stable. Hold oral medications acutely.
- Follow glucose and cover with SSI as needed.
- Update A1C 6.6
Restrictive Lung Disease
- Patient with ill-defined chronic respiratory issues.
- Apparently ruled out for COPD / asthma / etc.
- Dyspnea attributed to posture / habitus.
- Follow for any worsening dyspnea, etc.
- Albuterol PRN.
Suspect she has sleep apnea
Pulmonary following
Mild hepatic cirrhosis on CT scan
Monitor
DVT Prophylaxis: SCDs
Code Status: Full
I spent a total of 52 minutes with the patient or on the floor. More than 50% of this time involved counseling and coordination of care.
Anticipated Discharge: > 48 hours
Subjective/Interval History
-
Date of Service: August 10, 2023
has some LLQ pain
Objective Data
-
Labs:
Laboratory Results
08/10/23 08/10/23 08/10/23
03:41 09:32 15:35
Hgb 9.3 L 8.8 L Pending
Hct 28.3 L 26.9 L Pending
Sodium 139
Potassium 4.6
Chloride 114 H
Carbon Dioxide 19 L
BUN 16
Creatinine 0.6
Glucose 105 H
Calcium 7.9 L D
Vital Signs:
Vital Signs
Temp Pulse Resp BP Pulse Ox
98.2 F 65 13 113/65 99
08/10/23 11:00 08/10/23 09:00 08/10/23 09:00 08/10/23 09:00 08/10/23 09:00
I&O
08/09/23 08/10/23 08/11/23
06:59 06:59 06:59
Intake Total 1150 / 1250 880 / 880
Output Total 2270 / 2270
Balance -1120 / -1020 880 / 880
[2023-08-10] MEDS: RESTASIS 0.05% OPHTHALMIC EMULSION 1 DROPS BOTH EYES (11:55)
--- NOTE | 2023-08-10 12:30 | PTCARENOTE ---
Pt continues to rest quietly, no complaints or changes noted from previous assessment findings. Family remains present in room. Tolerating Clear Liquid diet w/o change in LLQ discomfort.
--- NOTE | 2023-08-10 14:15 | CM ---
CM adriel re: discharge planning.
Discussed in Rounds, reviewed pt's chart, met with pt. Pt's son and daughter in law at bedside.
Pt is a 73 year old female, admitted with primary dx of GIB.
Pt reports she was born and grew up in [place], immigrated to [place] [facility] with family 15 years ago, resides with son and daughter in law in a 2SH, 3 steps to enter, has 2 supportive children. Pt's son described the pt as independent in all areas [employer]. No DME,
VN or SNF history.
PCP: [facility] Hernandez
Pharmacy: [facility]
D/C plan: home with anticipated no needs. Family to transport at discharge.
CM will follow with discharge plan updates as hospitalization progresses
[2023-08-10 15:36] LABS: Hematocrit 28.1 % (37.0-47.0); Hemoglobin 8.7 g/dL (12.0-16.0)
--- NOTE | 2023-08-10 17:00 | PTCARENOTE ---
Pt continues to rest quietly in bed, napping for long intervals. No complaints offered or changes noted from previous assessment findings. H/H reported via TT to Dr Lozano. Pt's diet advanced to Full Liquids. Pt and family notified of change in
diet.
[2023-08-10 18:56] LABS: Glucose - Point of Care 128 mg/dl (70-99)
[2023-08-10] MEDS: REFRESH CELLUVISC GEL 1 DROPS BOTH EYES (21:27)
[2023-08-10] MEDS: FLUSH (NSS) 2 FLUSH IV (21:28)
--- NOTE | 2023-08-10 21:30 | PTCARENOTE ---
Report received from previous shift RN [id number]. Pt in bed with family visiting at bedside. Pt is primarily Tamil speaking, understands minimal Kuwaiti and son able to translate as needed. Pt is AAO3, denies current pain. Pt has shallow respirations,
denies SOB, lung sounds decreased throughout, pox 98% on 2L O2 nasal cannula. Telemetry rhythm reveals SR, HR 60's, no edema noted, palpable peripheral pulses present, knee high SCDs in use. +BS, abdomen round obese and slightly distended. Pt denies
abdominal pain, denies nausea, tolerated full liquid diet. Thermistor Mendiola catheter in place draining yellow urine. Skin as documented. R groin dressing c/d/i. L hand, R hand and L AC int's flushed and patent, capped. Safe environment maintained,
call rushing within reach. Will monitor closely.
[2023-08-10 21:40] LABS: Hematocrit 26.5 % (37.0-47.0); Hemoglobin 8.6 g/dL (12.0-16.0)
[2023-08-11] VITALS (29 sets, daily range): BP systolic 95–154; BP diastolic 56–80; PULSE 73–83; BMI 34.5
--- NOTE | 2023-08-11 00:30 | PTCARENOTE ---
Pt sleeping when undisturbed. Pt's pox desaturating while asleep/laying flat; elevated HOB and pt's pox increased to >92%. No other change in pt assessment. Will continue to monitor.
[2023-08-11 04:05] LABS: % Basophils 0.3 % (0-2); % Eosinophils 2.2 % (0-6); % Immature Granulocytes 0.4 % (0-0.5); % Lymphocytes 30.1 % (20.5-51.1); % Monocytes 6.8 % (1.7-9.3); % Neutrophils 60.2 % (42.2-75.2); Absolute Eosinophils 0.2 10^3/uL (0-0.7); Absolute Lymphocytes 2.2 10^3/uL (1.2-3.4); Absolute Monocytes 0.5 10^3/uL (0.1-0.6); Absolute Neutrophils 4.4 10^3/uL (1.4-6.5); Mean Corp Hgb Conc. 32.1 g/dL (33.0-37.0); Mean Corpuscular Hgb 28.1 pg (27.0-31.0); Mean Corpuscular Volume 87.5 fL (81.0-99.0); Mean Platelet Volume 10.5 fL (7.4-10.4); Nucleated Red Blood Cells % 0 %; Platelet Count 190 10^3/uL (130-400); Red Cell Dist. Width 17.1 % (11.5-14.5); White Blood Cell Count 7.2 10^3/uL (4.8-10.8)
[2023-08-11 04:28] LABS: Blood Urea Nitrogen 12 mg/dl (7-17); Calcium 8.9 mg/dl (8.4-10.2); Carbon Dioxide 25 mmol/L (22-30); Chloride 111 mmol/L (98-107); Estimated Creatinine Clearance 70 ml/min; Glucose 83 mg/dl (70-99); Potassium 3.9 mmol/L (3.5-5.1); Sodium 139 mmol/L (135-145); eGFR > 60.00
--- NOTE | 2023-08-11 05:57 | PTCARENOTE ---
Pt's Mendiola catheter D/C'd 8530. Purewick device placed and education about device provided to pt's son at bedside and he translated info to patient. Pt is aware to ring for assistance if she feels the urge to void and is aware that external urinary
device is in place. Complete CHG bath and oral care provided. Pt's abdomen remains distended, pt denies discomfort. Will continue to monitor.
--- NOTE | 2023-08-11 06:41 | W.PN.GI.CBS2 ---
Today's Communication / Plan
-
Please see assessment and plan for details.
Assessment / Plan
-
1. Acute GI blood loss: Consistent with diverticular bleed, with positive CT angiogram, with recurrent bleeding, status post angiogram and IR which was negative. She has remained stable without significant bleeding and stable hemoglobin. Will
advance diet as tolerated okay to DC from GI standpoint, will plan outpatient colonoscopy in the next 3 to [address] scan: With question of cirrhosis, though has normal platelets, INR, previously normal LFTs, no other stigmata of cirrhosis.
Subjective
Subjective
Date of Service: August 11, 2023
Patient feeling well, no bowel movements overnight, tolerated full liquids without difficulty, no abdominal pain, nausea or vomiting.
Objective
Data Reviewed
Laboratory Data:
Laboratory Results
08/11/23 03:52
Laboratory Results
PT 13.5 Sec (11.4-14.6) 08/09/23 17:07
INR 1.05 08/09/23 17:07
APTT 30.8 Sec (23.4-35.0) 08/09/23 17:07
Total Bilirubin Cancelled 08/09/23 16:37
AST Cancelled 08/09/23 16:37
ALT Cancelled 08/09/23 16:37
Alkaline Phosphatase Cancelled 08/09/23 16:37
Vital Signs and I&O:
Vital Signs
Temp Pulse Resp BP Pulse Ox
99.0 F 79 20 126/72 99
08/11/23 03:51 08/11/23 05:00 08/11/23 05:00 08/11/23 05:00 08/11/23 05:00
I&O
08/09/23 08/10/23 08/11/23
06:59 06:59 06:59
Intake Total 1150 / 1250 1840 / 1840
Output Total 2270 / 2270 3150 / 3150
Balance -1120 / -1020 -1310 / -1310
Physical Exam
Physical Exam
General: NAD
Abdomen: normal bowel sounds, soft, no tenderness, no masses or bruits, no ascites
--- NOTE | 2023-08-11 07:06 | W.PN.INTV ---
Today's Communication / Plan
Recommendations
Follow hemoglobin
PT/OT, out of bed to chair, ambulate
Check orthostatics as clinically indicated
Discontinue morphine
Outpatient sleep apnea evaluation
Outpatient follow-up CT chest for nodule
Pulmonary information follow-up left in chart
For transfer out of ICU. We will sign off. Please call with questions
Assessment
-
73-year-old female with history of diabetes, hypertension, suspected sleep apnea presents with bright red blood per rectum. Workup revealed diverticular bleed. Patient became hypotensive, improved with fluids and blood transfusion. Mesenteric
angiogram did not reveal active bleeding. Patient admitted to ICU 08/09/2023
Acute GI bleed
Diverticular bleed per imaging
History of diverticulitis
Acute anemia, required transfusion
Hypotension, secondary to bleeding
Leukocytosis
Hyperglycemia
Nodular cirrhosis per abdominal imaging
Conditions present prior to admission
Left lower lobe nodule 1 cm
Stable since October 2022
Anemia of chronic disease
Chronic gastritis per endoscopy 2018
History of varicose veins
History of asthma per outpatient records
Restrictive lung disease per outpatient records
Plan/recommendations
At this time, patient appears to be stable from a GI standpoint, hemoglobin trending upwards
Small bowel movement this morning with brown stool mixed with old blood, dark clots
Mesenteric angiogram per IR with no active bleeding
Coagulation studies normal
Nodular cirrhosis noted per abdominal imaging
Moving forward
Continue to monitor
concerned about patient's lethargy this morning. She is fatigued
Discontinue morphine, last dose more than 24 hours ago
Check hemoglobin later this morning
Diet advanced per GI
With regards to nodular cirrhosis, GI will follow conservatively. No stigmata of cirrhosis per GI
Follow blood sugars
88 this morning via fingerstick
With regards to nodule, CT chest was recommended after abdominal CT October 2022
Per outpatient records, CT chest February 2023 was recommended but was never obtained
Would recommend dedicated CT chest fall 2023. Information left in chart
Patient with chronic respiratory issues per reviewing outpatient records on albuterol alone and restrictive lung disease
Strongly suspected sleep apnea
Reviewed at length risks and ramifications of untreated sleep apnea with family/son.
Family is requesting follow-up with pulmonary. We will help accommodate
Reviewed with critical care nursing, some at bedside, primary service
Okay for transfer out of ICU. Once transferred, we will sign off. Please call with questions
Subjective Dataa
Subjective Data
Date of Service:
Date of Service: August 11, 2023
Subjective:
Patient appears to be fatigued this morning. She is without nausea, abdominal pain. She had a small bowel movement this morning with brown stool and mixed with dark blood, old clots mild per nursing. Patient is hungry. She denies chest pain or
shortness of breath. Son is present to help interpret
Objective Data
Data Reviewed
Vital Signs / I&O / Oxygen:
Vital Signs
Temp Pulse Resp BP Pulse Ox
99.0 F 79 20 126/72 99
08/11/23 03:51 08/11/23 05:00 08/11/23 05:00 08/11/23 05:00 08/11/23 05:00
Intake and Output
08/10/23 08/11/23 08/12/23
06:59 06:59 06:59
Intake Total 1150 / 1250 1840 / 1840
Output Total 2270 / 2270 3150 / 3150
Balance -1120 / -1020 -1310 / -1310
SaO2 99
Nasal Cannula flow liters per 2
minute
Physical Exam
General: Comfortable
HEENT: Normocephalic, Anicteric and Other (Large neck)
Cardiovascular: S1-S2, Regular Rhythm, Murmur (n), Rub (n), Peripheral Edema (n) and Calf Tenderness (n)
Respiratory: Wheeze (n), Crackles (n), Rhonchi (n) and Non-Labored Respirations
GI: Soft, Non Distended (Obese) and Non Tender
Neurology: Awake and Alert (Mild lethargic, sleepy, fatigued)
Skin: Cyanosis (n), Jaundice (n) and Rash (n)
Labs/Micro/Reports
Lab Data
08/11/23 03:52
[2023-08-11 07:49] LABS: Glucose - Point of Care 88 mg/dl (70-99)
[2023-08-11] MEDS: NOVOLOG FLEXPEN-LOW RESISTANCE SC ×2 (07:56→17:12)
[2023-08-11] MEDS: NSS (PRESERVATIVE FREE) 10 ML IV (07:56)
[2023-08-11] MEDS: PROTONIX IV 40 MG IV (07:57)
--- NOTE | 2023-08-11 10:07 | PTCARENOTE ---
recd pt 0715 handoff at bedside, family in room, pt with some Kosovan, family assisting. Assessed as noted. OOB to BSC, tolerated. gait slow, steady. VS noted. R groin puncture soft, dressing intact. stool as noted, brown with dark candice clot.
Plan reviewed with Dr. Medina, seen by Dr. Lozano, diet advance, eating slowly.
--- NOTE | 2023-08-11 11:39 | W.PN.HOSP.TC ---
Today's Communication/Plan
-
Monitor vital signs and see plan
Repeat hemoglobin later today, if stable then move out of ICU
Continue monitor hemoglobin
PT/OT
Assessment / Plan
Assessment / Plan
General: No acute distress
HEENT: Moist mucous membranes, PERRLA and Other (Thick neck.)
Respiratory: Other (Decreased at bases)
Cardiac: S1/S2 and Tachycardia; No Murmur
GI: Other (Abdomen is distended. Mild lower abdominal tenderness without rebound / guarding. Pos BS.)
Musculoskeletal: No Clubbing, No Cyanosis and No Edema
Neuro: Awake and Alert
Acute Lower GI Bleeding
Acute Blood Loss Anemia secondary to the above
Hypotension secondary to the above
CT angiogram positive for diverticular bleed, status post IR, which was negative. If bleeds again then will need to go to IR again
- Patient is being transported to IR for emergent angiography +/- embolization given ongoing / active bleeding.
- Receiving 2 units PRBCs now in the ED. continue monitor hemoglobin
Continue to monitor in ICU, spoke with gis professor
clears
Hemoglobin currently 9; last BM with some brown stool with possible old clots; repeat hgb later today and if stable then patient be transferred out of ICU
- Follow H&H and provide additional blood products as needed to maintain Hgb > 7.
PPI
- Hold / discontinue ASA. Patient has no history of ASCVD, no prior AL / CVA and no intravascular stents per family.
Patient will need colonoscopy eventually in 3 to 4 weeks per GI
Benign Hypertension
- Presently hypotensive due to blood loss / hypovolemia.
- Hold all antihypertensive medications acutely.
- Follow for improvement and resume medications when appropriate.
DM-II
- Stable. Hold oral medications acutely.
- Follow glucose and cover with SSI as needed.
- Update A1C 6.6
Restrictive Lung Disease
- Patient with ill-defined chronic respiratory issues.
- Apparently ruled out for COPD / asthma / etc.
- Dyspnea attributed to posture / habitus.
- Follow for any worsening dyspnea, etc.
- Albuterol PRN.
Suspect she has sleep apnea
Pulmonary following
Mild hepatic cirrhosis on CT scan
Monitor
DVT Prophylaxis: SCDs
Code Status: Full
Anticipated Discharge: 24 - 48 hours
Subjective/Interval History
-
Date of Service: August 11, 2023
denies pain
Objective Data
-
Labs:
Laboratory Results
08/11/23 08/11/23 08/11/23
03:52 03:52 03:52
WBC 7.2
Hgb 9.0 L Cancelled
Hct 28.0 L Cancelled
Plt Count 190
Sodium 139
Potassium 3.9
Chloride 111 H
Carbon Dioxide 25
BUN 12
Creatinine 0.7
Glucose 83
Calcium 8.9
08/11/23 08/11/23
09:30 11:39
WBC
Hgb Cancelled Pending
Hct Cancelled
Plt Count
Sodium
Potassium
Chloride
Carbon Dioxide
BUN
Creatinine
Glucose
Calcium
Vital Signs:
Vital Signs
Temp Pulse Resp BP Pulse Ox
98.3 F 80 24 121/74 98
08/11/23 11:13 08/11/23 11:01 08/11/23 11:01 08/11/23 11:01 08/11/23 08:00
I&O
08/10/23 08/11/23 08/12/23
06:59 06:59 06:59
Intake Total 1150 / 1250 1840 / 1840
Output Total 2270 / 2270 3150 / 3150 850 / 850
Balance -1120 / -1020 -1310 / -1310 -850 / -850
[2023-08-11 11:53] LABS: Glucose - Point of Care 226 mg/dl (70-99)
[2023-08-11] MEDS: NOVOLOG FLEXPEN-LOW RESISTANCE 2 UNITS SC (12:15)
[2023-08-11] MEDS: RESTASIS 0.05% OPHTHALMIC EMULSION 1 DROPS BOTH EYES (12:23)
--- NOTE | 2023-08-11 12:39 | PTCARENOTE ---
OOB to bathroom to void large amounts. no further BM. family present. HH drawn, sent, results to MDs, orthostatics done and documented, will recheck HH at 2000 as ordered. Diet clarified and changed per , to 1800 [address] ADA to start dinner.
family updated.
[2023-08-11 17:22] LABS: Glucose - Point of Care 127 mg/dl (70-99)
--- NOTE | 2023-08-11 18:57 | PTCARENOTE ---
Family will assist pt to bathroom, chair, back to bed, gait steady. pt reluctant to walk longer distances at this time. no further bleeding. abd distended, soft, passing gas but not further stool.
[2023-08-11 19:14] LABS: Hepatitis B Surface Antigen Negative (Negative)
[2023-08-11 19:31] LABS: Hepatitis B Surface Antibody Negative; Hepatitis C Antibody Negative (Negative)
[2023-08-11 19:47] LABS: Hematocrit 25.1 % (37.0-47.0); Hemoglobin 8.4 g/dL (12.0-16.0)
[2023-08-11] MEDS: REFRESH CELLUVISC GEL 1 DROPS BOTH EYES (21:12)
[2023-08-11 21:26] LABS: Glucose - Point of Care 207 mg/dl (70-99)
--- NOTE | 2023-08-11 22:24 | PTCARENOTE ---
Received pt sitting up in chair, AAOx3, without complaints. WIN. Ambulating to bathroom with min assist. SR on tele. HR 70s. BP 120s/80s. Afebrile. On RA, spo2 96%. Lungs CTA. Abdomen round, + bowel sounds. No BMs this shift thus far. No s/s
bleeding. Voiding in bathroom without issue. Family at bedside. Monitoring
--- NOTE | 2023-08-11 23:32 | PTCARENOTE ---
Pt. with bloody BM in toilet. Difficult to tell amount 2/2 urine mixed in. Pt. without complaints. Vitals stable. NELLY Rand notified.. Q6h H&H ordered. Monitor for now.
[2023-08-12] VITALS (49 sets, daily range): BP systolic 85–144; BP diastolic 46–104; BMI 34.3
[2023-08-12 01:27] LABS: % Basophils 0.3 % (0-2); % Eosinophils 1.8 % (0-6); % Immature Granulocytes 0.2 % (0-0.5); % Lymphocytes 35.3 % (20.5-51.1); % Monocytes 6.9 % (1.7-9.3); % Neutrophils 55.5 % (42.2-75.2); Absolute Eosinophils 0.1 10^3/uL (0-0.7); Absolute Lymphocytes 2.2 10^3/uL (1.2-3.4); Absolute Monocytes 0.4 10^3/uL (0.1-0.6); Absolute Neutrophils 3.5 10^3/uL (1.4-6.5); Hemoglobin 8.2 g/dL (12.0-16.0); Mean Corp Hgb Conc. 34.2 g/dL (33.0-37.0); Mean Corpuscular Hgb 28.3 pg (27.0-31.0); Mean Corpuscular Volume 82.8 fL (81.0-99.0); Mean Platelet Volume 10.5 fL (7.4-10.4); Nucleated Red Blood Cells % 0 %; Platelet Count 182 10^3/uL (130-400); White Blood Cell Count 6.2 10^3/uL (4.8-10.8)
[2023-08-12 01:45] LABS: Blood Urea Nitrogen 17 mg/dl (7-17); Calcium 8.7 mg/dl (8.4-10.2); Carbon Dioxide 23 mmol/L (22-30); Chloride 107 mmol/L (98-107); Estimated Creatinine Clearance 70 ml/min; Glucose 129 mg/dl (70-99); Potassium 3.8 mmol/L (3.5-5.1); Sodium 135 mmol/L (135-145); eGFR > 60.00
[2023-08-12] MEDS: NSS 1000 IV (02:06)
--- NOTE | 2023-08-12 02:41 | PTCARENOTE ---
At 0130, pt with 400ml liquid bright red blood stool. Vitals stable at that time. NELLY Goncalves notified immediately. CBC and BMP drawn. NSS and 1 unit PRBCs ordered. INSPECTORS AND REGULATORY OFFICERS to bedside to assess. GI and IRAD contacted by NELLY. Shortly after, pt.
with another liquid BRB stool of 300ml. Pt. was dizzy after this stool. Pt. resting in bed. BP 90s-100s/50s-60s. HR 70s. PRBCs infusing per protocol without issue at this time. Family reported pt. gets severe chills when receiving blood
transfusions. Janet hugger placed for comfort during transfusion. No chills at this time. Pt. transferred to ICU. Discussing with NELLY Walker. Monitoring closely
[2023-08-12 02:43] LABS: Hematocrit 21.2 % (37.0-47.0); Hemoglobin 7.1 g/dL (12.0-16.0)
--- NOTE | 2023-08-12 02:50 | W.PN.UPDATE ---
Update Note
Progress Note Update
[id number] Reported by the nursing staff, the patient had one bloody bm movement at the beginning of shift not able to determine the amount as mixed with urine. vital sings within normal limits and patient is asymptomatic. hgb level is 8.4. H&H q 6hrs
ordered to monitor the hgb level.
-around 1:30am, patient had 2-3 BM in short period with large fresh blood amount, hgb level 8.2, complaining of lower abdominal pain. Patient is symptomatic she feels very fatigue and dizzy. Patient with soft BP.
On exam, tenderness of lower abdomen, hyperactive bowel sound on exam. One unit of blood ordered, and patient was placed on maintenance IVF NSS.
-GI & IR contacted and after discussion of the case, new recommendation received of stat abdomen/pelvis CTA. Order placed as recommended.
-Patient transferred to ICU level.
-Discussed with the son and updated at bedside
[2023-08-12 02:54] LABS: INR 1.15; PT 14.7 Sec (11.4-14.6)
[2023-08-12 02:55] LABS: APTT 28.2 Sec (23.4-35.0)
--- NOTE | 2023-08-12 03:37 | SUR.OPER ---
CT angio abd ordered. Pt. transported without issue. Back resting in room. No more BMs since about 0145. Pt. tolerating PRBCs transfusion. VSS.
--- NOTE | 2023-08-12 04:30 | W.PN.UPDATE ---
Update Note
Progress Note Update
08/12/23
0430- CTA results negative for active bleeding. Vital signs stable SBP 90-100s, small amount of clotted red maroon stool again. Family at bedside and updated on results, all questions answered. Interventional radiologist Dr. Leone and
Media Planner Dr. Lozano updated of results of CTA abdomen/pelvis. PRBCs infusing x1 u.
--- NOTE | 2023-08-12 04:59 | PTCARENOTE ---
PRBC transfusion completed w/o complication ~0430. BP 90s-110s/50s-60s. She was incontinent mod. amt bright red blood with clots. Cleaned w CHG. SPIKE MACHINE HEATER updated. SPIKE MACHINE HEATER discussed CT results with family. No new orders at this time. Due for repeat labs
~0630.
[2023-08-12 06:55] LABS: Hematocrit 24.6 % (37.0-47.0); INR 1.17
[2023-08-12 06:56] LABS: APTT 29.6 Sec (23.4-35.0)
--- NOTE | 2023-08-12 07:17 | W.PN.INTV ---
Today's Communication / Plan
Recommendations
Follow serial hemoglobin
Transfuse per GI
Await colonoscopy later today
Follow blood sugars
Assessment
-
73-year-old female with history of diabetes, hypertension, suspected sleep apnea presents with bright red blood per rectum. Workup revealed diverticular bleed. Patient became hypotensive, improved with fluids and blood transfusion. Mesenteric
angiogram did not reveal active bleeding. Patient admitted to ICU 08/09/2023
Acute GI bleed
Diverticular bleed per imaging
History of diverticulitis
Status post 3 units transfusion
Acute anemia, required transfusion
Hypotension, secondary to bleeding
Leukocytosis
Hyperglycemia
Nodular cirrhosis per abdominal imaging
Conditions present prior to admission
Left lower lobe nodule 1 cm
Stable since October 2022
Anemia of chronic disease
Chronic gastritis per endoscopy 2018
History of varicose veins
History of asthma per outpatient records
Restrictive lung disease per outpatient records
Plan/recommendations
At this time, patient appears to be comfortable but fatigued. Per family, she has occasional dizziness
It is noted that yesterday afternoon, there was no orthostatics noted
Bowel movement overnight with brown stool mixed with old blood, dark clots, at 1 point bright red blood
Repeat abdominal angiogram negative for active bleeding
Coagulation studies normal
Nodular cirrhosis noted per abdominal imaging
Moving forward
Continue with management per GI
Plans for colonoscopy noted. Potentially additional unit per GI
With regards to nodular cirrhosis, GI will follow conservatively. No stigmata of cirrhosis per GI
Follow blood sugars
Labile blood sugars noted. Follow
Low-dose insulin as needed
With regards to nodule, CT chest was recommended after abdominal CT October 2022
Per outpatient records, CT chest February 2023 was recommended but was never obtained
Would recommend dedicated CT chest fall 2023. Information left in chart
Patient with chronic respiratory issues per reviewing outpatient records on albuterol alone and restrictive lung disease
Strongly suspected sleep apnea
Reviewed at length risks and ramifications of untreated sleep apnea with family/son.
Family is requesting follow-up with pulmonary. We will help accommodate
Reviewed with critical care nursing, son and [id number] at bedside, reviewed with GI
Remains in ICU pending stability of GI bleed
Subjective Dataa
Subjective Data
Date of Service:
Date of Service: August 12, 2023
Subjective:
Patient with ongoing bowel movements, bloody stool, clots overnight. Received 1 unit of blood for hemoglobin 7.1. Patient continues with lower abdominal pain and fatigue. Denies shortness of breath, chest pain. Family at bedside
Objective Data
Data Reviewed
Vital Signs / I&O / Oxygen:
Vital Signs
Temp Pulse Resp BP Pulse Ox
98 F 73 14 90/54 99
08/12/23 02:30 08/12/23 06:01 08/12/23 06:01 08/12/23 06:01 08/12/23 06:01
Intake and Output
08/11/23 08/12/23 08/13/23
06:59 06:59 06:59
Intake Total 1840 / 1840 1310 / 1310
Output Total 3150 / 3150 1550 / 1550
Balance -1310 / -1310 -240 / -240
SaO2 99
Nasal Cannula flow liters per 2
minute
Physical Exam
General: Comfortable
HEENT: Normocephalic, Anicteric and Other (Large neck)
Cardiovascular: S1-S2, Regular Rhythm, Murmur (n), Rub (n), Peripheral Edema (n) and Calf Tenderness (n)
Respiratory: Wheeze (n), Crackles (n), Rhonchi (n) and Non-Labored Respirations
GI: Soft, Non Distended (Obese) and Tender (Lower abdominal discomfort, left lower quadrant, no rebound or guarding)
Neurology: Awake, Alert (Mild lethargic, sleepy, fatigued) and No Motor Deficits (Moves all extremities, generally weak)
Skin: Cyanosis (n), Jaundice (n) and Rash (n)
Labs/Micro/Reports
Lab Data
08/12/23 01:19
Laboratory Results
08/12/23 08/12/23
02:21 06:17
PT 14.7 H 15.0 H
INR 1.15 1.17
APTT 28.2 29.6
--- NOTE | 2023-08-12 08:00 | PTCARENOTE ---
PT received resting family at bedside. No BM or bleeding. No distress. Seen by Dr. Medina. Call rushing within reach.
[2023-08-12 08:09] LABS: Glucose - Point of Care 194 mg/dl (70-99)
[2023-08-12] MEDS: NOVOLOG FLEXPEN-LOW RESISTANCE 1 UNITS SC ×2 (08:55→13:01)
[2023-08-12] MEDS: PROTONIX IV 40 MG IV (08:56)
[2023-08-12] MEDS: NSS (PRESERVATIVE FREE) 10 ML IV (08:57)
--- NOTE | 2023-08-12 09:49 | W.PN.GI.CBS2 ---
Today's Communication / Plan
-
Prep for colonoscopy later today. NPO. Transfuse 1 unit of PRBC. Follow H/H.
Assessment / Plan
-
The pt is a 73 yo female with a PMH significant for HTN, HLD, asthma, DM2, who presented to the ER on 08/08 with complaints of rectal bleeding, found to have active hemorrhage on CTA, suspected to be diverticular in nature. She underwent IR evaluation
but no area was identified and intervention was not completed. She did have resolution of bleeding with a stable hgb but had recurrent significant bleeding overnight. Repeat CTA imaging was obtained which was negative for active bleeding (results as
below). Initial hgb on admission was 10.1, dropped as low as 7.1 and she was transfused with a total of 3 units of PRBC. She has some lower abdominal cramping but CT imaging showed improving colitis. BP borderline hypotensive 80's-90's earlier this
AM. She is otherwise hemodynamically stable. She has never had a colonoscopy, with prior negative cologuard. Her family reports hernia repair x3 with small area of colon possibly involved in surgery.
08/12/23 CTA: IMPRESSION:
'1. No CT evidence for active gastric intestinal bleeding.
2. Extensive colonic diverticulosis with improvement of mild wall thickening/colitis involving the descending and proximal sigmoid colon.
3. Unchanged 7.9 mm nodule within the left lower lobe. Based upon the above guidelines, follow-up CT is recommended in 12 months.
4. Additional findings above.'
Problem list:
-rectal bleeding; suspected diverticular v other (cannot rule out malignancy with no prior colonoscopy)
-CTA showing mild descending/proximal colitis improvement, extensive diverticulosis, LLL lung nodule, NEGATIVE for active bleed
-normocytic anemia
-?Cirrhosis on CT imaging
Other pertinent medical hx:
-HTN
-HLD
-DM2
-asthma
Recommendations:
-Etiology of rectal bleeding likely diverticular based on CTA imaging. Other possibilities include AVM v other. Cannot exclude underlying malignancy with no prior colonoscopy. Repeat CTA as above
---CTA findings reviewed with Dr. Busch
-At this time given recurrent extensive bleeding over night with negative CTA will prep for colonoscopy later today as discussed with Dr. Busch. Also discussed with the cobbler upper.
-2L Miralax ordered to start now along with tap water enema 30 minutes before the procedure. The primary RN was made aware.
-Will transfuse 1 unit of PRBC given her fluctuation of blood pressure to optimize for her procedure (no signs of fluid volume overload)
-Continue NPO
-Trend H/H
-Monitor for ongoing bleeding
-Large bore IV's
-Daily PPI IV
-Discussed the plan with the pt's family at the bedside. Reviewed the risk of the procedure. They are agreeable as well as the pt.
-She will need further w/u outpatient for possible cirrhosis on CT imaging. She has normal platelets, INR, previously normal LFTs, no other stigmata of cirrhosis. Repeat CT showing mildly decreased attenuation of the liver without focal lesions.
-Further plan pending above.
Subjective
Subjective
Date of Service: August 12, 2023
The pt was seen and examined at the bedside. She reports some RLQ abdominal cramping, but otherwise without complaints. Her hgb is stable at 8 after 1 unit of PRBC. She has had no bleeding since earlier this morning. She is hemodynamically stable,
SBP 90's-110's without tachycardia. CTA done this AM negative for active bleeding with improvement of prior area of colitis in the descending and proximal sigmoid colon.
Objective
Data Reviewed
Laboratory Data:
Laboratory Results
08/12/23 01:19
Laboratory Results
PT 15.0 Sec (11.4-14.6) H 08/12/23 06:17
INR 1.17 08/12/23 06:17
APTT 29.6 Sec (23.4-35.0) 08/12/23 06:17
Total Bilirubin Cancelled 08/09/23 16:37
AST Cancelled 08/09/23 16:37
ALT Cancelled 08/09/23 16:37
Alkaline Phosphatase Cancelled 08/09/23 16:37
Vital Signs and I&O:
Vital Signs
Temp Pulse Resp BP Pulse Ox
98.4 F 73 14 90/54 99
08/12/23 08:00 08/12/23 06:01 08/12/23 06:01 08/12/23 06:01 08/12/23 06:01
I&O
08/11/23 08/12/23 08/13/23
06:59 06:59 06:59
Intake Total 1840 / 1840 1310 / 1380 210 / 210
Output Total 3150 / 3150 1550 / 1550
Balance -1310 / -1310 -240 / -170 210 / 210
Physical Exam
Physical Exam
HEENT: Anicteric
Cardiology: S1 and S2 (regular rate/rhythm)
Pulmonary: Clear
GI: Soft, Distended (mildly distended) and Tender (RLQ)
Extremities: No Edema
Neuro: Non Focal
[2023-08-12] MEDS: GAVILAX 238 GM PO (10:22)
[2023-08-12 12:18] LABS: Glucose - Point of Care 151 mg/dl (70-99)
[2023-08-12] MEDS: RESTASIS 0.05% OPHTHALMIC EMULSION 1 DROPS BOTH EYES (13:11)
--- NOTE | 2023-08-12 13:36 | W.PN.HOSP.TC ---
Today's Communication/Plan
-
Monitor vital signs see plan
Plan for colonoscopy today given another episode of bleeding overnight
1 unit PRBC
Continue to monitor hemoglobin
Discussed with family at bedside
Assessment / Plan
Assessment / Plan
General: No acute distress
HEENT: Moist mucous membranes, PERRLA and Other (Thick neck.)
Respiratory: Other (Decreased at bases)
Cardiac: S1/S2 and Tachycardia; No Murmur
GI: Other (Abdomen is distended. Mild lower abdominal tenderness without rebound / guarding. Pos BS.)
Musculoskeletal: No Clubbing, No Cyanosis and No Edema
Neuro: Awake and Alert
Acute Lower GI Bleeding
Acute Blood Loss Anemia secondary to the above
Hypotension secondary to the above
CT angiogram positive for diverticular bleed, status post IR, which was negative. Overnight 08/10, had multiple bloody bowel movements and got hypotensive. CTA negative for any acute bleed. Seen by GI, plan for colonoscopy 08/11
- 1 unit prbc 08/11; received 2 units on admission. continue monitor hemoglobin
Continue to monitor in ICU
NPO
- Follow H&H and provide additional blood products as needed to maintain Hgb > 7.
PPI
- Hold / discontinue ASA. Patient has no history of ASCVD, no prior NH / CVA and no intravascular stents per family.
Benign Hypertension
- Presently hypotensive due to blood loss / hypovolemia.
- Hold all antihypertensive medications acutely.
- Follow for improvement and resume medications when appropriate.
DM-II
- Stable. Hold oral medications acutely.
- Follow glucose and cover with SSI as needed.
- Update A1C 6.6
Restrictive Lung Disease
- Patient with ill-defined chronic respiratory issues.
- Apparently ruled out for COPD / asthma / etc.
- Dyspnea attributed to posture / habitus.
- Follow for any worsening dyspnea, etc.
- Albuterol PRN.
Suspect she has sleep apnea
Pulmonary following
Mild hepatic cirrhosis on CT scan
Monitor
DVT Prophylaxis: SCDs
Code Status: Full
I spent a total of 51 minutes with the patient or on the floor. More than 50% of this time involved counseling and coordination of care.
Anticipated Discharge: 24 - 48 hours
Subjective/Interval History
-
Date of Service: August 12, 2023
has pain
Objective Data
-
Labs:
Laboratory Results
08/09/23 08/12/23 08/12/23
16:37 01:19 02:21
WBC 6.2
Hgb 8.2 L 7.1 L
Hct 24.0 L 21.2 L
Plt Count 182
PT 14.7 H
INR 1.15
APTT 28.2
Sodium 137 135
Potassium 3.8
Chloride 107 107
Carbon Dioxide 23 23
BUN 17 17
Creatinine 0.7 0.7
Glucose 258 H 129 H
Calcium 10.0 8.7
Total Bilirubin Cancelled
AST Cancelled
ALT Cancelled
Alkaline Phosphatase Cancelled
08/12/23
06:17
WBC
Hgb 8.0 L
Hct 24.6 L
Plt Count
PT 15.0 H
INR 1.17
APTT 29.6
Sodium
Potassium
Chloride
Carbon Dioxide
BUN
Creatinine
Glucose
Calcium
Total Bilirubin
AST
ALT
Alkaline Phosphatase
Vital Signs:
Vital Signs
Temp Pulse Resp BP Pulse Ox
98.8 F 96 12 125/75 98
08/12/23 11:49 08/12/23 11:49 08/12/23 11:49 08/12/23 11:49 08/12/23 09:30
I&O
08/11/23 08/12/23 08/13/23
06:59 06:59 06:59
Intake Total 1840 / 1840 1310 / 1380 2490 / 2490
Output Total 3150 / 3150 1550 / 1550
Balance -1310 / -1310 -240 / -170 2490 / 2490
--- NOTE | 2023-08-12 13:42 | PTCARENOTE ---
pt started bowel prep 1000 and completed prep at 1215. Tap water enema per order tolerated at 1330. Awaiting call from GI lab.
[2023-08-12 15:07] LABS: HIV Combo Negative (Negative)
--- NOTE | 2023-08-12 15:09 | CM ---
CM reviewed medical records. Patient remains acutely ill.
--- NOTE | 2023-08-12 15:15 | PTCARENOTE ---
Pt picked up from GI procedure. Diet advanced to clears per order. Update H&H obtained per order. No distress call rushing within reach. Family at beside.
[2023-08-12 16:05] LABS: Hemoglobin 8.5 g/dL (12.0-16.0)
[2023-08-12 16:30] LABS: Glucose - Point of Care 110 mg/dl (70-99)
[2023-08-12] MEDS: NOVOLOG FLEXPEN-LOW RESISTANCE SC (17:00)
[2023-08-12] MEDS: NSS IV (20:05)
--- NOTE | 2023-08-12 20:10 | PTCARENOTE ---
Rec'd pt resting in bed pleasant with no complaints of pain/discomfort/nausea. Primary language of an dialect, which we do not have on our translating line, family at bedside for night. Afebrile, NSR. BP 140s/90. IVF capped. Room air, 99%,
lungs CTA. Tolerating clear liquid diet. Bedside commode for toileting needs. Will monitor.
[2023-08-12 21:05] LABS: Hematocrit 26.2 % (37.0-47.0); Hemoglobin 9.2 g/dL (12.0-16.0)
[2023-08-12 21:10] LABS: Glucose - Point of Care 241 mg/dl (70-99)
[2023-08-12] MEDS: NOVOLOG FLEXPEN 3 UNITS SC (21:34)
[2023-08-12] MEDS: REFRESH CELLUVISC GEL 1 DROPS BOTH EYES (21:34)
[2023-08-13] VITALS (25 sets, daily range): BP systolic 99–155; BP diastolic 52–99; BMI 33.7
--- NOTE | 2023-08-13 00:30 | PTCARENOTE ---
Pt resting comfortably. HGB stable. Will repeat in AM as ordered. Family updated on plan of care. Will monitor
[2023-08-13 04:52] LABS: % Basophils 0.5 % (0-2); % Eosinophils 2.7 % (0-6); % Immature Granulocytes 0.2 % (0-0.5); % Lymphocytes 28.3 % (20.5-51.1); % Monocytes 7.8 % (1.7-9.3); % Neutrophils 60.5 % (42.2-75.2); Absolute Eosinophils 0.2 10^3/uL (0-0.7); Absolute Lymphocytes 1.6 10^3/uL (1.2-3.4); Absolute Monocytes 0.4 10^3/uL (0.1-0.6); Absolute Neutrophils 3.3 10^3/uL (1.4-6.5); Hematocrit 26.1 % (37.0-47.0); Mean Corp Hgb Conc. 34.5 g/dL (33.0-37.0); Mean Corpuscular Hgb 28.6 pg (27.0-31.0); Mean Corpuscular Volume 82.9 fL (81.0-99.0); Mean Platelet Volume 10.6 fL (7.4-10.4); Nucleated Red Blood Cells % 0 %; Platelet Count 160 10^3/uL (130-400); Red Blood Cell Count 3.15 10^6/uL (4.20-5.40); Red Cell Dist. Width 15.8 % (11.5-14.5); White Blood Cell Count 5.5 10^3/uL (4.8-10.8)
--- NOTE | 2023-08-13 04:57 | PTCARENOTE ---
AM labs sent and pending. No change in previous assessment. Will monitor.
[2023-08-13 05:17] LABS: Blood Urea Nitrogen 11 mg/dl (7-17); Calcium 8.7 mg/dl (8.4-10.2); Carbon Dioxide 22 mmol/L (22-30); Chloride 110 mmol/L (98-107); Estimated Creatinine Clearance 81 ml/min; Glucose 123 mg/dl (70-99); Potassium 3.4 mmol/L (3.5-5.1); Sodium 137 mmol/L (135-145); eGFR > 60.00
--- NOTE | 2023-08-13 05:39 | W.PN.INTV ---
Today's Communication / Plan
Recommendations
Continue management per GI, advance diet
Follow hemoglobin
Out of bed to chair, ambulate
Assessment
-
73-year-old female with history of diabetes, hypertension, suspected sleep apnea presents with bright red blood per rectum. Workup revealed diverticular bleed. Patient became hypotensive, improved with fluids and blood transfusion. Mesenteric
angiogram did not reveal active bleeding. Patient admitted to ICU 08/09/2023
Acute GI bleed
Diverticular bleed per imaging
History of diverticulitis
Status post 3 units transfusion
Acute anemia, required transfusion
Hypotension, secondary to bleeding
Leukocytosis
Hyperglycemia
Nodular cirrhosis per abdominal imaging
Conditions present prior to admission
Left lower lobe nodule 1 cm
Stable since October 2022
Anemia of chronic disease
Chronic gastritis per endoscopy 2018
History of varicose veins
History of asthma per outpatient records
Restrictive lung disease per outpatient records
Plan/recommendations
At this time, patient appears to be comfortable
denies abdominal pain, no abdominal pain on exam
Hemoglobin stable at 9.0
No further bloody bowel movements since endoscopy
Repeat abdominal angiogram negative for active bleeding
Endoscopy without obvious bleeding
Nodular cirrhosis per imaging
Moving forward
Continue with management per GI
Advance diet per GI
Patient was on low-dose aspirin, held since admission
With regards to nodular cirrhosis, GI will follow conservatively. No stigmata of cirrhosis per GI
Follow blood sugars
Labile blood sugars noted. Follow
Low-dose insulin as needed
With regards to nodule, CT chest was recommended after abdominal CT October 2022
Per outpatient records, CT chest February 2023 was recommended but was never obtained
Would recommend dedicated CT chest fall 2023. Information left in chart
Patient with chronic respiratory issues per reviewing outpatient records on albuterol alone and restrictive lung disease
Strongly suspected sleep apnea
Reviewed at length risks and ramifications of untreated sleep apnea with family/son.
Family is requesting follow-up with pulmonary. We will help accommodate
Reviewed with critical care nursing, son and [id number] at bedside
Ongoing disposition efforts
Subjective Dataa
Subjective Data
Date of Service:
Date of Service: August 13, 2023
Subjective:
Patient is feeling okay. Denies chest pain, shortness of breath, significant abdominal pain. Is having some mild congestion, likely secondary to p.o. endoscopy prep. Lying flat without difficulty
Objective Data
Data Reviewed
Vital Signs / I&O / Oxygen:
Vital Signs
Temp Pulse Resp BP Pulse Ox
97.0 F 100 19 124/80 92
08/13/23 03:20 08/13/23 05:00 08/13/23 05:00 08/13/23 05:00 08/13/23 05:00
Intake and Output
08/11/23 08/12/23 08/13/23
06:59 06:59 06:59
Intake Total 1840 / 1840 1310 / 1380 3280 / 3280
Output Total 3150 / 3150 1550 / 1550
Balance -1310 / -1310 -240 / -170 3280 / 3280
SaO2 92
Nasal Cannula flow liters per 2
minute
Physical Exam
General: Comfortable
HEENT: Normocephalic, Anicteric and Other (Large neck)
Cardiovascular: S1-S2, Regular Rhythm, Murmur (n), Rub (n), Peripheral Edema (n) and Calf Tenderness (n)
Respiratory: Wheeze (n), Crackles (n), Rhonchi (n) and Non-Labored Respirations
GI: Soft, Non Distended (Obese) and Non Tender
Neurology: Awake, Alert (Mild lethargic, sleepy, fatigued) and No Motor Deficits (Moves all extremities, generally weak)
Skin: Cyanosis (n), Jaundice (n) and Rash (n)
Labs/Micro/Reports
Lab Data
08/13/23 04:19
08/13/23 04:19
Laboratory Results
08/12/23
06:17
PT 15.0 H
INR 1.17
APTT 29.6
[2023-08-13] MEDS: KCL 270 MEQ IV (06:02)
[2023-08-13 08:11] LABS: Glucose - Point of Care 125 mg/dl (70-99)
[2023-08-13] MEDS: NOVOLOG FLEXPEN-MODERATE RESISTANCE SC ×2 (08:13→16:23)
[2023-08-13] MEDS: NSS (PRESERVATIVE FREE) 10 ML IV (08:20)
[2023-08-13] MEDS: PROTONIX IV 40 MG IV (08:20)
[2023-08-13] MEDS: FLUSH (NSS) 1 FLUSH IV (08:21)
--- NOTE | 2023-08-13 08:45 | PTCARENOTE ---
Rec'd pt at 0800 awake and alert sitting up in bed eating clear liquid breakfast. Pt speaks limited Greek but family at the bedside assisting with translation. Denies pain. WIN. Skin is wm and dry. Respirs are unlabored on RA with sats of 95%. BS
in general are decreased throughout with few fine base crackles. Denies shortness of breath. Monitor SR with border 1st'avb MD.22. + pulses. Tr LE edema. Denies chest pain. VS as documented. Abd is round and sl distended with + BS. Denies nausea.
HNV so far this am. Capped ints intact R and L hand. KCL 40 meq rider infusing via LAC IV site. Plan of care reviewed with Pt and Family. Call rushing in reach.
--- NOTE | 2023-08-13 09:43 | PTCARENOTE ---
Pt assisted to the bathroom to void. Complete CHG bath given. Pt did own oral care earlier. Pt then assisted with assist of 1-2 to the chair. Gait is weak but is easily able to bear wt. Currently sitting oob in the chair. Call rushing in reach.
--- NOTE | 2023-08-13 10:00 | PTCARENOTE ---
Int DC'd from the L AC due to leaking and discomfort. KCL rider finishing up via L hand IV site
--- NOTE | 2023-08-13 11:40 | PTCARENOTE ---
KCL rider completed. Pt remains sitting oob in the chair.
[2023-08-13 11:45] LABS: Glucose - Point of Care 155 mg/dl (70-99)
[2023-08-13] MEDS: NOVOLOG FLEXPEN-MODERATE RESISTANCE 1 UNITS SC (11:56)
[2023-08-13] MEDS: RESTASIS 0.05% OPHTHALMIC EMULSION 1 DROPS BOTH EYES (11:59)
--- NOTE | 2023-08-13 12:35 | PTCARENOTE ---
Pt had been sitting oob in the chair eating full liquid lunch. No c/o nausea. Assisted to the bathroom- had small amt of bright red blood mixed with burgundy clot in the toilet. No c/o dizziness. Malou Busch and Main updated. Will monitor and check
HH at 1800. Currently resting back in bed
--- NOTE | 2023-08-13 14:10 | W.PN.HOSP.TC ---
Today's Communication/Plan
-
Monitor vital signs and see plan
Repeat hemoglobin later today
GI following
Repeat potassium
Now on FLD
Discussed with family at bedside
Assessment / Plan
Assessment / Plan
General: No acute distress
HEENT: Moist mucous membranes, PERRLA and Other (Thick neck.)
Respiratory: Other (Decreased at bases)
Cardiac: S1/S2 and Tachycardia; No Murmur
GI: Other (Abdomen is distended. Mild lower abdominal tenderness without rebound / guarding. Pos BS.)
Musculoskeletal: No Clubbing, No Cyanosis and No Edema
Neuro: Awake and Alert
Acute Lower GI Bleeding
Acute Blood Loss Anemia secondary to the above
Hypotension secondary to the above
CT angiogram positive for diverticular bleed, status post IR, which was negative. Overnight 08/10, had multiple bloody bowel movements and got hypotensive. CTA negative for any acute bleed. Seen by GI, status post colonoscopy 08/11 which showed some
polyps, hemorrhoids. Old blood noted. No new bleeding
- 1 unit prbc 08/11; received 2 units on admission. continue monitor hemoglobin
Continue to monitor in ICU; if no further bloody bowel movements then can be transferred out
Now on full liquid
- Follow H&H and provide additional blood products as needed to maintain Hgb > 7.
PPI
- Hold / discontinue ASA. Patient has no history of ASCVD, no prior [place] / CVA and no intravascular stents per family.
Hypokalemia
replete
Benign Hypertension
- Presently hypotensive due to blood loss / hypovolemia.
- Hold all antihypertensive medications acutely.
- Follow for improvement and resume medications when appropriate.
DM-II
- Stable. Hold oral medications acutely.
- Follow glucose and cover with SSI as needed.
- Update A1C 6.6
Restrictive Lung Disease
- Patient with ill-defined chronic respiratory issues.
- Apparently ruled out for COPD / asthma / etc.
- Dyspnea attributed to posture / habitus.
- Follow for any worsening dyspnea, etc.
- Albuterol PRN.
Suspect she has sleep apnea
Pulmonary following
Mild hepatic cirrhosis on CT scan
Monitor
DVT Prophylaxis: SCDs
Code Status: Full
Anticipated Discharge: Within 24 hours
Subjective/Interval History
-
Date of Service: August 13, 2023
Denies pain
Objective Data
-
Labs:
Laboratory Results
08/13/23 08/13/23
04:19 18:00
WBC 5.5
Hgb 9.0 L Pending
Hct 26.1 L Pending
Plt Count 160
Sodium 137
Potassium 3.4 L
Chloride 110 H
Carbon Dioxide 22
BUN 11
Creatinine 0.6
Glucose 123 H
Calcium 8.7
Vital Signs:
Vital Signs
Temp Pulse Resp BP Pulse Ox
98.3 F 100 17 149/71 98
08/13/23 12:15 08/13/23 12:22 08/13/23 12:22 08/13/23 12:22 08/13/23 12:22
I&O
08/12/23 08/13/23 08/14/23
06:59 06:59 06:59
Intake Total 1310 / 1380 3342.5 / 3410.0 752.5 / 752.5
Output Total 1550 / 1550 175 / 175
Balance -240 / -170 3342.5 / 3410.0 577.5 / 577.5
--- NOTE | 2023-08-13 14:21 | W.PN.GI.CBS2 ---
Today's Communication / Plan
-
Recommendations:
-Etiology of rectal bleeding likely diverticular based on CTA imaging.
Colonoscopy without any evidence of active bleeding but multiple diverticula noted without any stigmata.
Bleeding has subsided at this time.
Okay for full liquid diet, monitor H&H and transfuse as needed.
If further bleeding, will put her back on clear liquid diet and monitor closely.
if overt bleeding, will need CT angiogram again.
-History of gastric ulcer in the past, continue PPI .
Assessment / Plan
-
The pt is a 73 yo female with a PMH significant for HTN, HLD, asthma, DM2, who presented to the ER on 08/08 with complaints of rectal bleeding, found to have active hemorrhage on CTA, suspected to be diverticular in nature. She underwent IR evaluation
but no area was identified and intervention was not completed. She did have resolution of bleeding with a stable hgb but had recurrent significant bleeding overnight. Repeat CTA imaging was obtained which was negative for active bleeding (results as
below). Initial hgb on admission was 10.1, dropped as low as 7.1 and she was transfused with a total of 3 units of PRBC. She has some lower abdominal cramping but CT imaging showed improving colitis. BP borderline hypotensive 80's-90's earlier this
AM. She is otherwise hemodynamically stable. She has never had a colonoscopy, with prior negative cologuard. Her family reports hernia repair x3 with small area of colon possibly involved in surgery.
08/12/23 CTA: IMPRESSION:
'1. No CT evidence for active gastric intestinal bleeding.
2. Extensive colonic diverticulosis with improvement of mild wall thickening/colitis involving the descending and proximal sigmoid colon.
3. Unchanged 7.9 mm nodule within the left lower lobe. Based upon the above guidelines, follow-up CT is recommended in 12 months.
4. Additional findings above.'
Problem list:
-rectal bleeding; suspected diverticular v other (cannot rule out malignancy with no prior colonoscopy)
-CTA showing mild descending/proximal colitis improvement, extensive diverticulosis, LLL lung nodule, NEGATIVE for active bleed
-normocytic anemia
-?Cirrhosis on CT imaging
Other pertinent medical hx:
-HTN
-HLD
-DM2
-asthma
Recommendations:
-Etiology of rectal bleeding likely diverticular based on CTA imaging.
Colonoscopy without any evidence of active bleeding but multiple diverticula noted without any stigmata.
Bleeding has subsided at this time.
Okay for full liquid diet, monitor H&H and transfuse as needed.
If further bleeding, will put her back on clear liquid diet and monitor closely.
if overt bleeding, will need CT angiogram again.
-History of gastric ulcer in the past, continue PPI .
Subjective
Subjective
Date of Service: August 13, 2023
No abdominal pain, nausea or vomiting. Tolerating clear liquid diet. Had 1 episode of small dark clot with blood this morning
Objective
Data Reviewed
Laboratory Data:
Laboratory Results
08/13/23 04:19
Laboratory Results
PT 15.0 Sec (11.4-14.6) H 08/12/23 06:17
INR 1.17 08/12/23 06:17
APTT 29.6 Sec (23.4-35.0) 08/12/23 06:17
Total Bilirubin Cancelled 08/09/23 16:37
AST Cancelled 08/09/23 16:37
ALT Cancelled 08/09/23 16:37
Alkaline Phosphatase Cancelled 08/09/23 16:37
Vital Signs and I&O:
Vital Signs
Temp Pulse Resp BP Pulse Ox
98.3 F 100 17 149/71 96
08/13/23 12:15 08/13/23 12:22 08/13/23 12:22 08/13/23 12:22 08/13/23 14:00
I&O
07/05/24 07/06/24 07/07/24
06:59 06:59 06:59
Intake Total 1310 / 1380 3342.5 / 3410.0 752.5 / 752.5
Output Total 1550 / 1550 575 / 575
Balance -240 / -170 3342.5 / 3410.0 177.5 / 177.5
Physical Exam
Physical Exam
GI: Soft, Non Distended and Non Tender
--- NOTE | 2023-08-13 14:30 | PTCARENOTE ---
Resting in between getting up and using the commode or bathroom for yellow urine. Did have on episode of desaturation to 78% with sleeping the quickly rebounded to the 90's. Family remains at the bedside. No complaints
[2023-08-13 16:26] LABS: Glucose - Point of Care 116 mg/dl (70-99)
--- NOTE | 2023-08-13 16:30 | PTCARENOTE ---
No changes in assessment.
[2023-08-13 18:23] LABS: Hematocrit 26.6 % (37.0-47.0); Hemoglobin 9.3 g/dL (12.0-16.0)
--- NOTE | 2023-08-13 20:00 | PTCARENOTE ---
Rec'd pt sitting in chair, family at bedside. Pleasant/cooperative. No c/o pain. Afebrile. NSR. IV lines flushed/patent. Pulses palpable, no edema. Room air. Tolerating full liquid diet. Bathroom as needed. Will monitor.
[2023-08-13 22:04] LABS: Glucose - Point of Care 204 mg/dl (70-99)
[2023-08-13] MEDS: NOVOLOG FLEXPEN 3 UNITS SC (22:12)
[2023-08-13] MEDS: REFRESH CELLUVISC GEL 1 DROPS BOTH EYES (22:12)
[2023-08-14] VITALS (16 sets, daily range): BP systolic 115–159; BP diastolic 48–90; BMI 33.6
--- NOTE | 2023-08-14 00:29 | PTCARENOTE ---
Pt resting comfortably. No change in previous assessment. PM blood sugar covered as ordered. Will monitor.
[2023-08-14 04:48] LABS: % Basophils 0.7 % (0-2); % Eosinophils 3.1 % (0-6); % Immature Granulocytes 0.4 % (0-0.5); % Lymphocytes 34.2 % (20.5-51.1); % Monocytes 7.6 % (1.7-9.3); Absolute Eosinophils 0.2 10^3/uL (0-0.7); Absolute Lymphocytes 1.9 10^3/uL (1.2-3.4); Absolute Monocytes 0.4 10^3/uL (0.1-0.6); Hematocrit 28.5 % (37.0-47.0); Hemoglobin 9.7 g/dL (12.0-16.0); Mean Corpuscular Hgb 28.7 pg (27.0-31.0); Mean Corpuscular Volume 84.3 fL (81.0-99.0); Mean Platelet Volume 10.9 fL (7.4-10.4); Nucleated Red Blood Cells % 0 %; Platelet Count 205 10^3/uL (130-400); Red Blood Cell Count 3.38 10^6/uL (4.20-5.40); Red Cell Dist. Width 15.4 % (11.5-14.5); White Blood Cell Count 5.6 10^3/uL (4.8-10.8)
[2023-08-14 05:10] LABS: Blood Urea Nitrogen 7 mg/dl (7-17); Calcium 9.1 mg/dl (8.4-10.2); Carbon Dioxide 26 mmol/L (22-30); Chloride 106 mmol/L (98-107); Estimated Creatinine Clearance 69 ml/min; Glucose 123 mg/dl (70-99); Potassium 3.7 mmol/L (3.5-5.1); Sodium 136 mmol/L (135-145); eGFR > 60.00
--- NOTE | 2023-08-14 07:07 | W.PN.INTV ---
Today's Communication / Plan
Recommendations
Continue management per GI
Follow hemoglobin
Ambulate
Mechanical DVT prophylaxis
Eventual outpatient sleep study. Pulmonary follow-up instructions left in chart
Once transferred out of ICU. We will sign off. Please call with questions.
Assessment
-
73-year-old female with history of diabetes, hypertension, suspected sleep apnea presents with bright red blood per rectum. Workup revealed diverticular bleed. Patient became hypotensive, improved with fluids and blood transfusion. Mesenteric
angiogram did not reveal active bleeding. Patient admitted to ICU 08/09/2023
Acute GI bleed
Diverticular bleed per imaging
History of diverticulitis
Status post 3 units transfusion
Acute anemia, required transfusion
Hypotension, secondary to bleeding
Leukocytosis
Hyperglycemia
Nodular cirrhosis per abdominal imaging
Conditions present prior to admission
Left lower lobe nodule 1 cm
Stable since October 2022
Anemia of chronic disease
Chronic gastritis per endoscopy 2018
History of varicose veins
History of asthma per outpatient records
Restrictive lung disease per outpatient records
Plan/recommendations
At this time, patient appears to be comfortable
denies abdominal pain, hemoglobin stable, 9.7
Bowel movement this morning, no blood
No further bloody bowel movements since endoscopy
Repeat abdominal angiogram negative for active bleeding
Endoscopy without obvious bleeding
Nodular cirrhosis per imaging
Moving forward
Continue with management per GI
Advance diet per GI
Patient was on low-dose aspirin, held since admission
With regards to nodular cirrhosis, GI will follow conservatively. No stigmata of cirrhosis per GI
Follow blood sugars
Labile blood sugars noted. Follow
Low-dose insulin as needed
With regards to nodule, CT chest was recommended after abdominal CT October 2022
Per outpatient records, CT chest February 2023 was recommended but was never obtained
Would recommend dedicated CT chest fall 2023. Information left in chart
Patient with chronic respiratory issues per reviewing outpatient records on albuterol alone and restrictive lung disease
Strongly suspected sleep apnea
Bradycardia and hypoxia noted with sleep
Reviewed at length risks and ramifications of untreated sleep apnea with family/son.
Family is requesting follow-up with pulmonary. We will help accommodate
Reviewed with critical care nursing, son and [id number] at bedside
Okay for transfer out of ICU. If transferred, we will sign off. Please call with questions
Subjective Dataa
Subjective Data
Date of Service:
Date of Service: August 14, 2023
Subjective:
Patient is feeling well. Sitting in chair. Denies nausea, abdominal pain, shortness of breath. Bradycardia and hypoxia noted when sleeping. Had bowel movement this morning, no blood. Family at bedside
Objective Data
Data Reviewed
Vital Signs / I&O / Oxygen:
Vital Signs
Temp Pulse Resp BP Pulse Ox
98.3 F 81 23 130/58 95
08/14/23 03:20 08/14/23 06:00 08/14/23 06:00 08/14/23 06:00 08/14/23 06:00
Intake and Output
08/13/23 08/14/23 08/15/23
06:59 06:59 06:59
Intake Total 3342.5 / 3410.0 852.5 / 852.5
Output Total 575 / 575
Balance 3342.5 / 3410.0 277.5 / 277.5
SaO2 95
Nasal Cannula flow liters per 2
minute
Physical Exam
General: Comfortable
HEENT: Normocephalic, Anicteric and Other (Large neck)
Cardiovascular: S1-S2, Regular Rhythm, Murmur (n), Rub (n), Peripheral Edema (n) and Calf Tenderness (n)
Respiratory: Wheeze (n), Crackles (n), Rhonchi (n) and Non-Labored Respirations
GI: Soft, Non Distended (Obese) and Non Tender
Neurology: Awake, Alert (Mild lethargic, sleepy, fatigued) and No Motor Deficits (Moves all extremities, generally weak)
Skin: Cyanosis (n), Jaundice (n) and Rash (n)
Labs/Micro/Reports
Lab Data
08/14/23 04:25
08/14/23 04:25
[2023-08-14 07:40] LABS: Glucose - Point of Care 140 mg/dl (70-99)
[2023-08-14] MEDS: FLUSH (NSS) 1 FLUSH IV (07:46)
[2023-08-14] MEDS: PROTONIX IV 40 MG IV (07:46)
[2023-08-14] MEDS: NOVOLOG FLEXPEN-MODERATE RESISTANCE SC (07:46)
[2023-08-14] MEDS: NSS (PRESERVATIVE FREE) 10 ML IV (07:46)
--- NOTE | 2023-08-14 08:40 | PTCARENOTE ---
Rec'd pt at 0800 awake alert and oriented sitting oob in the chair. Pt is limited Romansh speaking but family at the bedside helping to translate. Denies pain or discomfort. WIN. Skin is quiroz wm and dry. Bandaid intact on R groin. Site wnl. Respirs
are unlabored on RA with sats of 96%. BS are sl decreased at the bases. No cough noted. Denies shortness of breath. Monitor SR-ST with +pulses. No edema. KH SCD's. Denies chest pain. ABd is round/distended with + BS. Denies nausea. Ready to eat full
liquid breakfast. No stools overnight. Voided yellow urine this am in the toilet. Capped ints intact R forearm and L wrist. Sites wnl. Plan of care reviewed with pt and family and Call rushing in reach.
--- NOTE | 2023-08-14 09:44 | W.PN.GI.CBS2 ---
Today's Communication / Plan
-
Recommendations:
-Etiology of rectal bleeding likely diverticular based on CTA imaging.
Colonoscopy without any evidence of active bleeding but multiple diverticula noted without any stigmata.
Bleeding has subsided at this time.
Okay for low residue diet, monitor H&H , trending up now
If tolerating 2 meals without any bleeding, OK for DC
-History of gastric ulcer in the past, continue PPI .
Assessment / Plan
-
The pt is a 73 yo female with a PMH significant for HTN, HLD, asthma, DM2, who presented to the ER on 08/08 with complaints of rectal bleeding, found to have active hemorrhage on CTA, suspected to be diverticular in nature. She underwent IR evaluation
but no area was identified and intervention was not completed. She did have resolution of bleeding with a stable hgb but had recurrent significant bleeding overnight. Repeat CTA imaging was obtained which was negative for active bleeding (results as
below). Initial hgb on admission was 10.1, dropped as low as 7.1 and she was transfused with a total of 3 units of PRBC. She has some lower abdominal cramping but CT imaging showed improving colitis. BP borderline hypotensive 80's-90's earlier this
AM. She is otherwise hemodynamically stable. She has never had a colonoscopy, with prior negative cologuard. Her family reports hernia repair x3 with small area of colon possibly involved in surgery.
08/12/23 CTA: IMPRESSION:
'1. No CT evidence for active gastric intestinal bleeding.
2. Extensive colonic diverticulosis with improvement of mild wall thickening/colitis involving the descending and proximal sigmoid colon.
3. Unchanged 7.9 mm nodule within the left lower lobe. Based upon the above guidelines, follow-up CT is recommended in 12 months.
4. Additional findings above.'
Problem list:
-rectal bleeding; suspected diverticular v other (cannot rule out malignancy with no prior colonoscopy)
-CTA showing mild descending/proximal colitis improvement, extensive diverticulosis, LLL lung nodule, NEGATIVE for active bleed
-normocytic anemia
-?Cirrhosis on CT imaging
Other pertinent medical hx:
-HTN
-HLD
-DM2
-asthma
Recommendations:
-Etiology of rectal bleeding likely diverticular based on CTA imaging.
Colonoscopy without any evidence of active bleeding but multiple diverticula noted without any stigmata.
Bleeding has subsided at this time.
Okay for low residue diet, monitor H&H , trending up now
If tolerating 2 meals without any bleeding, OK for DC
-History of gastric ulcer in the past, continue PPI .
Subjective
Subjective
Date of Service: August 14, 2023
Formed brown stool with old blood clot noted this am, tolerating FLD
Objective
Data Reviewed
Laboratory Data:
Laboratory Results
08/14/23 04:25
08/14/23 04:25
Laboratory Results
PT 15.0 Sec (11.4-14.6) H 08/12/23 06:17
INR 1.17 08/12/23 06:17
APTT 29.6 Sec (23.4-35.0) 08/12/23 06:17
Total Bilirubin Cancelled 08/09/23 16:37
AST Cancelled 08/09/23 16:37
ALT Cancelled 08/09/23 16:37
Alkaline Phosphatase Cancelled 08/09/23 16:37
Vital Signs and I&O:
Vital Signs
Temp Pulse Resp BP Pulse Ox
98.2 F 94 20 123/90 96
08/14/23 08:04 08/14/23 08:00 08/14/23 08:00 08/14/23 08:00 08/14/23 08:00
I&O
08/13/23 08/14/23 08/15/23
06:59 06:59 06:59
Intake Total 3342.5 / 3410.0 852.5 / 852.5
Output Total 575 / 575
Balance 3342.5 / 3410.0 277.5 / 277.5
Physical Exam
Physical Exam
GI: Soft and Tender (some discomfort in the lower abdomen)
--- NOTE | 2023-08-14 10:20 | PTCARENOTE ---
Pt tolerated full liquid breakfast. Remains sitting oob in the chair. Assisted to the bathroom with assist of 1- Gait is slow but steady. Had a small form brown BM with some bloody streaks. Dr. Busch in and aware. G bath given. Family remains at
the bedside bedside. Call rushing in reach.
--- NOTE | 2023-08-14 11:04 | W.PN.HOSP.TC ---
Today's Communication/Plan
-
Monitor vital signs and see plan
Continue monitor hemoglobin
GI wants to monitor on regular diet
Transfer to [facility]
hopeful dc tomorrow
pt/ot
Family updated at bedside
Assessment / Plan
Assessment / Plan
General: No acute distress
HEENT: Moist mucous membranes, PERRLA and Other (Thick neck.)
Respiratory: Other (Decreased at bases)
Cardiac: S1/S2 and Tachycardia; No Murmur
GI: Other (Abdomen is distended. Mild lower abdominal tenderness without rebound / guarding. Pos BS.)
Musculoskeletal: No Clubbing, No Cyanosis and No Edema
Neuro: Awake and Alert
Acute Lower GI Bleeding
Acute Blood Loss Anemia secondary to the above
Hypotension secondary to the above
CT angiogram positive for diverticular bleed, status post IR, which was negative. Overnight 08/10, had multiple bloody bowel movements and got hypotensive. CTA negative for any acute bleed. Seen by GI, status post colonoscopy 08/11 which showed some
polyps, hemorrhoids. Old blood noted. No new bleeding
hgb now 9.7
- 1 unit prbc 08/11; received 2 units on admission. continue monitor hemoglobin
Continue to monitor in ICU; if no further bloody bowel movements then can be transferred out
Now on low res; Gi wants to monitor response on low res
- Follow H&H and provide additional blood products as needed to maintain Hgb > 7.
PPI
- discontinue ASA. Patient has no history of ASCVD, no prior [place] / CVA and no intravascular stents per family.
Hypokalemia
replete
Benign Hypertension
- Presently hypotensive due to blood loss / hypovolemia.
- Hold all antihypertensive medications acutely.
- Follow for improvement and resume medications when appropriate.
DM-II
- Stable. Hold oral medications acutely.
- Follow glucose and cover with SSI as needed.
- Update A1C 6.6
Restrictive Lung Disease
- Patient with ill-defined chronic respiratory issues.
- Apparently ruled out for COPD / asthma / etc.
- Dyspnea attributed to posture / habitus.
- Follow for any worsening dyspnea, etc.
- Albuterol PRN.
Suspect she has sleep apnea
Pulmonary following
Mild hepatic cirrhosis on CT scan
Monitor
DVT Prophylaxis: SCDs
Code Status: Full
PT/OT
Anticipated Discharge: Within 24 hours
Subjective/Interval History
-
Date of Service: August 14, 2023
denies pain
Objective Data
-
Labs:
Laboratory Results
08/14/23
04:25
WBC 5.6
Hgb 9.7 L
Hct 28.5 L
Plt Count 205 D
Sodium 136
Potassium 3.7
Chloride 106
Carbon Dioxide 26
BUN 7
Creatinine 0.7
Glucose 123 H
Calcium 9.1
Vital Signs:
Vital Signs
Temp Pulse Resp BP Pulse Ox
98.2 F 88 16 142/89 96
08/14/23 08:04 08/14/23 10:00 08/14/23 10:00 08/14/23 09:58 08/14/23 10:00
I&O
08/13/23 08/14/23 08/15/23
06:59 06:59 06:59
Intake Total 3342.5 / 3410.0 852.5 / 852.5 450 / 450
Output Total 575 / 575
Balance 3342.5 / 3410.0 277.5 / 277.5 450 / 450
[2023-08-14 11:20] LABS: Glucose - Point of Care 183 mg/dl (70-99)
[2023-08-14] MEDS: NOVOLOG FLEXPEN-MODERATE RESISTANCE 1 UNITS SC ×2 (11:20→17:43)
[2023-08-14] MEDS: RESTASIS 0.05% OPHTHALMIC EMULSION 1 DROPS BOTH EYES (12:30)
--- NOTE | 2023-08-14 12:46 | PTCARENOTE ---
Good toleration of Low Residue lunch. No c/o nausea. After lunch ambulated pt in the hallway about 30 feet. Need the use of a walker. Gait is weak and pt tired with walking. Denied dizziness but admitted her muscles in her legs ached. HR 106-114
with walking. Currently resting back in bed. Call rushing in reach. Will await PT recommendations about possibly needing a walker on DC.
--- NOTE | 2023-08-14 16:30 | PTCARENOTE ---
Slept for a while this afternoon. Pt did snore with sleeping but no desaturation noted this afternoon. Assisted back oob to the bathroom to void and then to the chair at 1545. Will admit when asked to some lower abd discomfort but no distinct pain.
Respirs are unlabored. VS as documented. No changes in assessment. Pt for transfer to Med/Surg. Report called to [facility] and currently pt transferred via wheelchair to Rm [id number]. Call rushing in reach. Family with pt.
[2023-08-14 17:44] LABS: Glucose - Point of Care 171 mg/dl (70-99)
--- NOTE | 2023-08-14 18:02 | PTCARENOTE ---
pt arrived to unit at 1650 via wheelchair from ICU, x2 family members at the bedside. pt ambulated from wheelchair to chair x1 assist. pt assessed by this nurse. family and pt oriented to unit. call rushing in reach.
[2023-08-14 21:43] LABS: Glucose - Point of Care 257 mg/dl (70-99)
[2023-08-14] MEDS: REFRESH CELLUVISC GEL 1 DROPS BOTH EYES (21:43)
[2023-08-14] MEDS: LOPID 600 MG PO (21:43)
[2023-08-14] MEDS: TENORMIN 50 MG PO (21:43)
[2023-08-15 06:22] LABS: % Basophils 0.6 % (0-2); % Eosinophils 3.6 % (0-6); % Immature Granulocytes 0.2 % (0-0.5); % Lymphocytes 33.8 % (20.5-51.1); % Monocytes 8.6 % (1.7-9.3); % Neutrophils 53.2 % (42.2-75.2); Absolute Eosinophils 0.2 10^3/uL (0-0.7); Absolute Lymphocytes 1.8 10^3/uL (1.2-3.4); Absolute Monocytes 0.5 10^3/uL (0.1-0.6); Absolute Neutrophils 2.8 10^3/uL (1.4-6.5); Hematocrit 27.4 % (37.0-47.0); Hemoglobin 9.3 g/dL (12.0-16.0); Mean Corp Hgb Conc. 33.9 g/dL (33.0-37.0); Mean Corpuscular Hgb 28.7 pg (27.0-31.0); Mean Corpuscular Volume 84.6 fL (81.0-99.0); Mean Platelet Volume 10.7 fL (7.4-10.4); Nucleated Red Blood Cells % 0.4 %; Platelet Count 232 10^3/uL (130-400); Red Blood Cell Count 3.24 10^6/uL (4.20-5.40); Red Cell Dist. Width 15.3 % (11.5-14.5); White Blood Cell Count 5.3 10^3/uL (4.8-10.8)
[2023-08-15 07:00] VITALS: BP 134/78
[2023-08-15 07:07] LABS: Blood Urea Nitrogen 14 mg/dl (7-17); Calcium 9.5 mg/dl (8.4-10.2); Carbon Dioxide 22 mmol/L (22-30); Chloride 105 mmol/L (98-107); Estimated Creatinine Clearance 69 ml/min; Glucose 156 mg/dl (70-99); Sodium 135 mmol/L (135-145); eGFR > 60.00
[2023-08-15 07:41] LABS: Glucose - Point of Care 165 mg/dl (70-99)
[2023-08-15] MEDS: PROTONIX IV 40 MG IV (07:45)
[2023-08-15] MEDS: NOVOLOG FLEXPEN-MODERATE RESISTANCE 1 UNITS SC (07:45)
[2023-08-15] MEDS: LIPITOR 20 MG PO (07:45)
[2023-08-15] MEDS: NSS (PRESERVATIVE FREE) 10 ML IV (07:46)
[2023-08-15] MEDS: FLUSH (NSS) 2 FLUSH IV (07:56)
[2023-08-15] MEDS: LOPID 600 MG PO (08:25)
--- NOTE | 2023-08-15 11:08 | W.PN.HOSP.TC ---
Addendum entered and electronically signed by Shilpa Lamas MD 08/15/23 14:14:
total DC time 38 min
Original Note:
Today's Communication/Plan
-
see A/P
Assessment / Plan
Assessment / Plan
A/P:
# Acute Lower GI Bleeding/ diverticular bleed
# Acute Blood Loss Anemia secondary to the above
# Hypotension secondary to the above
CT angiogram positive for diverticular bleed
s/p IR mesenteric angiogram. TESSA/SMA arteriograms performed, no suspicious findings and No angiographic evidence for active bleeding
Overnight 08/10, had multiple bloody bowel movements and became hypotensive.
CTA negative for any acute bleed.
s/p colonoscopy 08/11 which showed some polyps, hemorrhoids. Old blood noted. No new bleeding
Pt has received total 4 units PRBC transfusion since admission
Cont PPI
discontinue ASA. Patient has no history of ASCVD, no prior [place] / CVA and no intravascular stents per family.
# Hypokalemia
repleted
# Benign Hypertension
Hypotensive due to blood loss / hypovolemia.
resumed [employer] atenolol
# DM-II, Stable.
Hold oral medications acutely.
Follow glucose and cover with SSI as needed.
Update A1C 6.6
# Restrictive Lung Disease
Patient with ill-defined chronic respiratory issues. Apparently ruled out for COPD / asthma / etc.
Dyspnea attributed to posture / habitus.
Albuterol PRN.
Suspect she has sleep apnea
Pulmonary following
# Mild hepatic cirrhosis on CT scan
Monitor
DVT Prophylaxis: SCDs
Code Status: Full
PT/OT
DW DIL at bedside
Anticipated Discharge: Today
Subjective/Interval History
-
Date of Service: August 15, 2023
Objective Data
-
Labs:
Laboratory Results
08/15/23
06:07
WBC 5.3
Hgb 9.3 L
Hct 27.4 L
Plt Count 232
Sodium 135
Potassium 4.0
Chloride 105
Carbon Dioxide 22
BUN 14
Creatinine 0.7
Glucose 156 H
Calcium 9.5
Vital Signs:
Vital Signs
Temp Pulse Resp BP Pulse Ox
36.7 C 75 18 134/78 96
08/15/23 07:00 08/15/23 07:00 08/15/23 07:00 08/15/23 07:00 08/15/23 07:00
I&O
08/14/23 08/15/23 08/16/23
06:59 06:59 06:59
Intake Total 852.5 / 852.5 1080 / 1080
Output Total 575 / 575
Balance 277.5 / 277.5 1080 / 1080
Review of Systems
-
All other systems: Reviewed and negative
Abdomen/GI: Denies Bloody Stools
Physical Exam
-
General: Well Developed, Well Nourished, No Apparent Distress, Comfortable and Conversant; Negative Respiratory Distress
HEENT: Normocephalic, Atraumatic, Nose Appears Normal and Ears Appear Normal; Negative Oxygen
Respiratory: Clear to Auscultation and Non Labored Respirations; Negative Accessory Resp Muscle Use
Cardiac: Regular Rhythm and S1/S2
GI: Soft, Nontender, Nondistended and Normal Bowel Sounds
Skin: Warm and Dry
Neuro: Awake, Alert and Oriented
Psych: Calm and Intact Judgement/Insight
Data Reviewed
-
Labs: Labs Reviewed by me
[2023-08-15 11:47] LABS: Glucose - Point of Care 219 mg/dl (70-99)
[2023-08-15] MEDS: NOVOLOG FLEXPEN-MODERATE RESISTANCE 2 UNITS SC (11:49)
[2023-08-15] MEDS: RESTASIS 0.05% OPHTHALMIC EMULSION 1 DROPS BOTH EYES (11:50)
--- NOTE | 2023-08-15 12:20 | W.PN.GI.CBS2 ---
Addendum entered and electronically signed by Nuris Busch MD 08/15/23 12:24:
Follow-up CBC in 1 to 2 weeks through PCPs office.
Original Note:
Today's Communication / Plan
-
Recommendations:
-Etiology of rectal bleeding likely diverticular based on CTA imaging.
Colonoscopy without any evidence of active bleeding but multiple diverticula noted without any stigmata.
Bleeding has subsided at this time.
Tolerating low residue diet
Okay for discharge from GI standpoint with outpatient follow-up.
-History of gastric ulcer in the past, continue PPI
Assessment / Plan
-
The pt is a 73 yo female with a PMH significant for HTN, HLD, asthma, DM2, who presented to the ER on 08/08 with complaints of rectal bleeding, found to have active hemorrhage on CTA, suspected to be diverticular in nature. She underwent IR evaluation
but no area was identified and intervention was not completed. She did have resolution of bleeding with a stable hgb but had recurrent significant bleeding overnight. Repeat CTA imaging was obtained which was negative for active bleeding (results as
below). Initial hgb on admission was 10.1, dropped as low as 7.1 and she was transfused with a total of 3 units of PRBC. She has some lower abdominal cramping but CT imaging showed improving colitis. BP borderline hypotensive 80's-90's earlier this
AM. She is otherwise hemodynamically stable. She has never had a colonoscopy, with prior negative cologuard. Her family reports hernia repair x3 with small area of colon possibly involved in surgery.
08/12/23 CTA: IMPRESSION:
'1. No CT evidence for active gastric intestinal bleeding.
2. Extensive colonic diverticulosis with improvement of mild wall thickening/colitis involving the descending and proximal sigmoid colon.
3. Unchanged 7.9 mm nodule within the left lower lobe. Based upon the above guidelines, follow-up CT is recommended in 12 months.
4. Additional findings above.'
Problem list:
-rectal bleeding; suspected diverticular v other (cannot rule out malignancy with no prior colonoscopy)
-CTA showing mild descending/proximal colitis improvement, extensive diverticulosis, LLL lung nodule, NEGATIVE for active bleed
-normocytic anemia
-?Cirrhosis on CT imaging
Other pertinent medical hx:
-HTN
-HLD
-DM2
-asthma
Recommendations:
-Etiology of rectal bleeding likely diverticular based on CTA imaging.
Colonoscopy without any evidence of active bleeding but multiple diverticula noted without any stigmata.
Bleeding has subsided at this time.
Tolerating low residue diet
Okay for discharge from GI standpoint with outpatient follow-up.
-History of gastric ulcer in the past, continue PPI .
Subjective
Subjective
Date of Service: August 15, 2023
Patient had 2 brown looser stool this morning, 1 streak of blood but otherwise normal. Tolerating diet
Objective
Data Reviewed
Laboratory Data:
Laboratory Results
08/15/23 06:07
08/15/23 06:07
Laboratory Results
PT 15.0 Sec (11.4-14.6) H 08/12/23 06:17
INR 1.17 08/12/23 06:17
APTT 29.6 Sec (23.4-35.0) 08/12/23 06:17
Total Bilirubin Cancelled 08/09/23 16:37
AST Cancelled 08/09/23 16:37
ALT Cancelled 08/09/23 16:37
Alkaline Phosphatase Cancelled 08/09/23 16:37
Vital Signs and I&O:
Vital Signs
Temp Pulse Resp BP Pulse Ox
98.1 F 75 18 134/78 96
08/15/23 07:00 08/15/23 07:00 08/15/23 07:00 08/15/23 07:00 08/15/23 07:00
I&O
08/14/23 08/15/23 08/16/23
06:59 06:59 06:59
Intake Total 852.5 / 852.5 1080 / 1080
Output Total 575 / 575
Balance 277.5 / 277.5 1080 / 1080
Physical Exam
Physical Exam
GI: Soft, Non Distended and Non Tender
[2023-08-15 12:27] VITALS: BP 129/79; PULSE 72; O2SAT 97
[2023-08-15 13:23] VITALS: BP 126/73
--- NOTE | 2023-08-15 13:45 | CM ---
Reviewed chart, received referral for VN services. Met with patient and her daughter in law was at bedside. She was agreeable to VN services and requested DH. Will make referral.
Plan: Case management will continue to follow and assist with discharge planning. Home with VN services.
--- NOTE | 2023-08-15 14:01 | W.DCSUMMARY ---
Discharge Summary
Discharge Data
Date of Admission: 08/09/23
Date of Discharge: 08/15/23
-
Pending Results: No
Hospital Course
Principal Diagnosis:
Acute Lower gastrointestinal (GI) bleeding due to diverticular bleed.
Acute Blood Loss Anemia secondary to the above
Hypotension secondary to the above
Chronic Diagnoses:�
Benign Hypertension
Type 2 diabetes mellitus, A1C 6.6% this admission
Restrictive Lung Disease
Mild hepatic cirrhosis on CT scan
Consultations:�
Gastroenterology
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
Interventional radiology
Procedures:�
IR mesenteric angiogram.
Colonoscopy 08/11 which showed some polyps, hemorrhoids. Old blood noted. No new bleeding
Clinical course:�
This female, with past medical history as stated above, who presented with lower GI bleed.
Problem 1:
Acute Lower GI bleeding due to diverticular bleed.
This was associated with acute blood loss anemia and hypotension.
Her initial CT angiogram was noted positive for diverticular bleed, hence she underwent IR mesenteric angiogram.
TESSA/SMA arteriograms were performed, and according to IR, there was no angiographic evidence for active bleeding.
She had further bloody bowel movement and became hypotensive, but her repeat CT angio was negative for acute bleed.
She underwent colonoscopy on 08/11 which showed some polyps, hemorrhoids, old blood but no new bleeding.
Of note, she received a total 4 units PRBC transfusion this admission.
Her hemoglobin has been stable at around 9 on the day of discharge.
Her prior to admission aspirin was discontinued, given she has no history of atherosclerosis cardiovascular disease.
As for the rest of her medical problems, they were stable during her hospital stay.
Discharge Plan
-
Patient Disposition: Home with Home Care
Discharge Diagnosis/Procedures: Acute lower GI bleeding from diverticular bleed
Condition: Fair
Diet: As tolerated
Activity: As tolerated
Driving Restrictions: As prior to admission
Bathing Restrictions: None
Blood Work: CBC in one week with result to your primary care provider
Activity Restrictions/Additional Instructions:
Please restart your blood pressure medications monitor blood pressure greater than 140/90
Referrals:
oJan Medina MD [Active] -
(family req sleep eval and sob eval
appt in 1mo
[facility]MER or Liz. Reccommend CT chest Fall 2023 for LLL nodule. Never got CT chest in Feb 2023)
Hair Hernandez MD [Family Provider] - in less than 1 week
Nuris Busch MD [Active] -
Additional Discharge Medication Instructions: Stop aspirin
Stop atenolol at 100 mg (continue 50 mg)
Stop amlodipine
Prescriptions:
Continued
metformin 500 mg Tablet
500 mg PO BIDWMEAL
atorvastatin 20 mg Tablet
20 mg PO DAILY
therapeutic multivitamin Tablet
1 tab PO DAILY
gemfibrozil 600 mg Tablet
600 mg PO BID
glipizide 2.5 mg Tablet Extended Release 24hr
2.5 mg PO NOON
Premarin 0.625 mg/gram Cream
0.625 mg VAGINAL DAILYPRN PRN (Reason: mild pain)
esomeprazole magnesium 40 mg Capsule,Delayed Release(Dr/Ec)
40 mg PO DAILY
albuterol sulfate 90 mcg/actuation Hfa Aerosol Inhaler
1 puff INHALATION R DAILYPRN PRN (Reason: SOB)
fluticasone propionate 50 mcg/actuation [place],Suspension
2 spray INTRANASAL DAILY
atenolol 50 mg Tablet
50 mg PO HS
carboxymethylcellulose sodium 1 % Drops, Liquid Gel
1 drp BOTH EYES HS
cyclosporine [Restasis] 0.05 % Dropperette
1 drp BOTH EYES NOON
Discontinued
atenolol 100 mg Tablet
100 mg PO DAILY
aspirin 81 mg Tablet,Delayed Release (Dr/Ec)
81 mg PO HS
amlodipine 10 mg Tablet
10 mg PO DAILY
Discharge Orders:
Discharge Patient (As Directed); Ordered 08/15/23
Ordered By: Shilpa Lamas
Discharge Date and Time
Print Language: MALAY
== END 2023-08-15 14:46 | disposition home health service (06) | DRG 378 ==
LOC: 3 WEST ACU 20:29
PROVIDERS: Internal Medicine; Internal Medicine Gastroenterology; Nurse Practitioner Family; ADMITTING PHYSICIAN Hospitalist; ATTENDING PHYSICIAN Internal Medicine; CONSULT PHYSICIAN Internal Medicine Critical Care Medicine; CONSULT PHYSICIAN Internal Medicine Gastroenterology; EMERGENCY PHYSICIAN Emergency Medicine; FAMILY PHYSICIAN Family Medicine
PROC: 30233N1 Transfusion of Nonautologous Red Blood Cells into Peripheral Vein, Percutaneous Approach (ICD-10-PCS; 2023-08-09)
PROC: 0DJD8ZZ Inspection of Lower Intestinal Tract, Via Natural or Artificial Opening Endoscopic (ICD-10-PCS; 2023-08-12)
DX: K57.31 Diverticulosis of large intestine without perforation or abscess with bleeding (principal); D62 Acute posthemorrhagic anemia; I10 Essential (primary) hypertension; E11.8 Type 2 diabetes mellitus with unspecified complications; J98.4 Other disorders of lung; K74.60 Unspecified cirrhosis of liver; K64.8 Other hemorrhoids; D12.2 Benign neoplasm of ascending colon; K62.5 Hemorrhage of anus and rectum
CPT/HCPCS: 36246; 71045; 74174; 75726; 76937; 80048; 82962; 83036; 85014; 85018; 85025; 85027; 85610; 85730; 86706; 86803; 86850; 86900; 86901; 86920; 87340; 87389; 93005; 96374; 96375; 97116; 97162; 97166; 97530; 99291; C1769; C1887; P9016; Q9967

== ENCOUNTER → 2023-09-22 15:02 | Outpatient (REF) | payer OTHER, SELFPAY | LOC: HWRAD 15:02 | PROVIDERS: ATTENDING PHYSICIAN Nurse Practitioner Adult Health; PRIMARYCARE PHYSICIAN Family Medicine | DX: R91.1 Solitary pulmonary nodule (principal) | CPT/HCPCS: 71250 ==

== ENCOUNTER → 2024-08-17 12:28 | Outpatient (REF) | payer OTHER, SELFPAY | LOC: RAD 12:28 | PROVIDERS: ATTENDING PHYSICIAN Family Medicine | DX: E66.01 Morbid (severe) obesity due to excess calories (principal); M17.0 Bilateral primary osteoarthritis of knee | CPT/HCPCS: 73560; 73564 ==

== ENCOUNTER → 2024-11-12 11:53 | Outpatient (REF) | payer OTHER, SELFPAY | LOC: RAD 11:53 | PROVIDERS: ATTENDING PHYSICIAN Nurse Practitioner Adult Health; FAMILY PHYSICIAN Internal Medicine | DX: R91.1 Solitary pulmonary nodule (principal) | CPT/HCPCS: 71250 ==